=== PATIENT | female | born 1970 | race Caucasian/White ===

== ENCOUNTER 2019-02-10 20:05 | Emergency (ER) | payer BC, OTHER ==
[~2019-02-10] VITALS: Ht 162.6 cm; Wt 90.7 kg
[2019-02-10] MEDS ORDERED: ONDANSETRON 4 MG/2 ML (SDV) Z0FRAN ONE (20:14)
--- NOTE | 2019-02-10 20:14 | ED Abdominal Pain ---
General Chief Complaint: Abdominal/GI Problems Stated Complaint: ABD PAIN; POSSIBLE DEHYDRATION Source of Information: Patient, EMS, RN Notes Reviewed Exam Limitations: No Limitations History of Present Illness Date Seen by Provider: Feb 10, 2019 Time Seen by Provider: 20:12 Initial Comments Patient brought to the Ed c/ c/o ANDRADE and N/V since earlier this afternoon. No known fever. ANDRADE is frontal. Has had Sinus headaches and Migraines in the past. Rating her ANDRADE an 8-9/10. No heat exposure. Concerned could be dehydrated from her vomiting. Timing/Duration: 4-6 Hours Severity/Quality: Severe (ANDRADE; 8-9/10) Activities at Onset: Rest Modifying Factors: Worsens With Vomiting Associated Symptoms: Denies Symptoms (x/ as noted. ), Headache (frontal), Nausea/Vomiting Allergies and Home Medications Allergies Coded Allergies: No Known Drug Allergies (Unverified , 02/10/19) Patient Home Medication List Home Medication List Reviewed: Yes Review of Systems Review of Systems Constitutional: see HPI Gastrointestinal: See HPI, Nausea, Vomiting Psychiatric/Neurological: See HPI, Headache All Other Systems Reviewed Negative Unless Noted: Yes (Negative excepted noted.) Past Wfewhrs-Abuxcy-Csqocv Hx Patient Social History Recent Foreign Travel: No Contact w/Someone Who Travel: No Physical Exam Vital Signs Vital Signs - First Documented 02/10/19 20:25 Temp 97.4 Pulse 70 Resp 18 B/P (MAP) 142/73 (96) Pulse Ox 98 O2 Delivery Room Air Capillary Refill : Height/Weight/BMI Height: '" Weight: lbs. oz. kg; BMI Method: General Appearance: WD/WN, moderate distress, obese HEENT: PERRL/EOMI, normal ENT inspection Neck: supple, normal inspection Respiratory: no respiratory distress Cardiovascular: regular rate, rhythm Gastrointestinal: soft; No guarding, No rebound; tenderness (mild; diffuse) Rectal: deferred Neurologic/Psychiatric: no motor/sensory deficits, alert, oriented x 3, other (appears uncomfortable) Skin: warm/dry; No rash Progress/Results/Core Measures Results/Orders Lab Results Laboratory Tests Test 02/10/19 20:35 02/10/19 20:50 Range/Units Urine Color YELLOW Urine Clarity CLEAR Urine pH 6.5 5-9 Urine Specific [place] 1.015 L 1.016-1.022 Urine Protein NEGATIVE NEGATIVE Urine Glucose (UA) NEGATIVE NEGATIVE Urine Ketones TRACE H NEGATIVE Urine Nitrite NEGATIVE NEGATIVE Urine Bilirubin NEGATIVE NEGATIVE Urine Urobilinogen 0.2 NORMAL MG/DL Urine Leukocyte Esterase NEGATIVE NEGATIVE Urine RBC (Auto) NEGATIVE NEGATIVE Urine RBC RARE /HPF Urine WBC NONE /HPF Urine Squamous Epithelial Cells 0-2 /HPF Urine Crystals NONE /LPF Urine Bacteria NONE /HPF Urine Casts NONE /LPF Urine Mucus NEGATIVE /LPF Urine Culture Indicated NO White Blood Count 11.1 H 4.3-11.0 10^3/uL Red Blood Count 3.71 L 4.35-5.85 10^6/uL Hemoglobin 11.5 11.5-16.0 G/DL Hematocrit 35 35-52 % Mean Corpuscular Volume 94 80-99 FL Mean Corpuscular Hemoglobin 31 25-34 PG Mean Corpuscular Hemoglobin Concent 33 32-36 G/DL Red Cell Distribution Width 12.3 10.0-14.5 % Platelet Count 271 130-400 10^3/uL Mean Platelet Volume 10.7 H 7.4-10.4 FL Neutrophils (%) (Auto) 79 H 42-75 % Lymphocytes (%) (Auto) 16 12-44 % Monocytes (%) (Auto) 4 0-12 % Eosinophils (%) (Auto) 1 0-10 % Basophils (%) (Auto) 0 0-10 % Neutrophils # (Auto) 8.8 H 1.8-7.8 X 10^3 Lymphocytes # (Auto) 1.8 1.0-4.0 X 10^3 Monocytes # (Auto) 0.4 0.0-1.0 X 10^3 Eosinophils # (Auto) 0.1 0.0-0.3 10^3/uL Basophils # (Auto) 0.0 0.0-0.1 10^3/uL Sodium Level 139 135-145 MMOL/L Potassium Level 3.5 L 3.6-5.0 MMOL/L Chloride Level 102 98-107 MMOL/L Carbon Dioxide Level 17 L 21-32 MMOL/L Anion Gap 20 H 5-14 MMOL/L Blood Urea Nitrogen 10 7-18 MG/DL Creatinine 0.65 0.60-1.30 MG/DL Estimat Glomerular Filtration Rate > 60 BUN/Creatinine Ratio 15 Glucose Level 129 H 70-105 MG/DL Calcium Level 8.4 L 8.5-10.1 MG/DL Corrected Calcium 8.4 L 8.5-10.1 MG/DL Magnesium Level 1.7 L 1.8-2.4 MG/DL Total Bilirubin 0.3 0.1-1.0 MG/DL Aspartate Amino Transf (AST/SGOT) 15 5-34 U/L Alanine Aminotransferase (ALT/SGPT) 17 0-55 U/L Alkaline Phosphatase 62 40-136 U/L Total Protein 7.1 6.4-8.2 GM/DL Albumin 4.0 3.2-4.5 GM/DL Lipase 16 8-78 U/L Serum Test, Qualitative NEGATIVE NEGATIVE My Orders Orders - SAMIA WALLS DO Ondansetron Injection (Zofran Injectio (02/10/19 20:30) Ondansetron Injection (Zofran Injectio (02/10/19 20:14) Cbc With Automated Diff (02/10/19 20:18) Comprehensive Metabolic Panel (02/10/19 20:18) Hcg,Qualitative Serum (02/10/19 20:18) Lipase (02/10/19 20:18) Magnesium (02/10/19 20:18) Ua Culture If Indicated (02/10/19 20:18) Ketorolac Injection (Toradol Injection) (02/10/19 20:45) Promethazine Injection (Phenergan Injec (02/10/19 20:45) Ct Head Wo (02/10/19 20:41) Lactated Ringers (Lr 1000 Ml Iv Solution (02/10/19 21:30) Benztropine Injection (Cogentin Injectio (02/10/19 21:30) Dexamethasone Injection (Decadron Inject (02/10/19 21:30) Lorazepam Injection (Ativan Injection) (02/10/19 22:45) Medications Given in ED Current Medications Medications Dose Ordered Sig/David Route Start Time Stop Time Status Last Admin Dose Admin Benztropine Mesylate 2 mg ONCE ONCE IM 02/10/19 21:30 02/10/19 21:33 DC 02/10/19 21:48 2 MG Dexamethasone Sodium Phosphate 15 mg ONCE ONCE IV 02/10/19 21:30 02/10/19 21:33 DC 02/10/19 21:48 15 MG Ketorolac Tromethamine 15 mg ONCE ONCE IVP 02/10/19 20:45 02/10/19 21:22 DC 02/10/19 21:10 15 MG Lorazepam 0.5 mg ONCE ONCE IVP 02/10/19 22:45 02/10/19 22:46 DC 02/10/19 22:39 0.5 MG Ondansetron HCl 4 mg ONCE ONCE IVP 02/10/19 20:30 02/10/19 20:31 DC 02/10/19 20:22 4 MG Promethazine HCl 25 mg ONCE ONCE IVP 02/10/19 20:45 02/10/19 21:22 DC 02/10/19 21:10 25 MG Vital Signs/I&O 02/10/19 02/10/19 20:25 23:06 Temp 97.4 Pulse 70 68 Resp 18 16 B/P (MAP) 142/73 (96) 115/97 (103) Pulse Ox 98 98 O2 Delivery Room Air Room Air Progress Progress Note : Progress Note Symptoms much improved although she did develop some dystonic activity in her legs p/ the Phenergan. Dosed her c/ both Cogentin and Ativan that did help. Unfortunately, she lists Benadryl as an allergy. Diagnostic Imaging Diagonstic Imaging: CT Plain Films/CT/US/NM/MRI: head (nothing acute) Departure Impression Primary Impression: Head ache Additional Impressions: N&V (nausea and vomiting) Dehydration Dystonic drug reaction Disposition: 01 HOME, SELF-CARE Condition: Improved Departure-Patient Inst. Referrals: [facility] [place]ructions: Nausea and Vomiting, Adult, Migraine Headache (DC), Dehydration, Adult (DC) SAMIA WALLS DO Feb 10, 2019 20:14
[2019-02-10] MEDS ORDERED: ONDANSETRON 4 MG/2 ML (SDV) Z0FRAN IVP ONE (20:30)
[2019-02-10] MEDS ORDERED: PROMETHAZINE INJ 25 MG/ML (PHENERGAN) AMP IVP ONE (20:45)
[2019-02-10] MEDS ORDERED: KETOROLAC 30 MG/ML VIAL IVP ONE (20:45)
[2019-02-10 21:02] LABS: HEMATOCRIT 35 % (35-52); HEMOGLOBIN 11.5 G/DL (11.5-16.0); MEAN CORPUSCULAR HEMOGLOBIN 31 PG (25-34); WHITE BLOOD COUNT 11.1 10^3/uL (4.3-11.0)
[2019-02-10 21:03] LABS: BASOPHILS % (AUTO) 0 % (0-10); EOSINOPHILS # (AUTO) 0.1 10^3/uL (0.0-0.3); EOSINOPHILS % (AUTO) 1 % (0-10); LYMPHOCYTES # (AUTO) 1.8 X 10^3 (1.0-4.0); LYMPHOCYTES % (AUTO) 16 % (12-44); MEAN CORPUSCULAR HGB CONC 33 G/DL (32-36); MEAN CORPUSCULAR VOLUME 94 FL (80-99); MEAN PLATELET VOLUME 10.7 FL (7.4-10.4); MONOCYTES # (AUTO) 0.4 X 10^3 (0.0-1.0); MONOCYTES % (AUTO) 4 % (0-12); NEUTROPHILS # (AUTO) 8.8 X 10^3 (1.8-7.8); NEUTROPHILS % (AUTO) 79 % (42-75); PLATELET COUNT 271 10^3/uL (130-400); RED CELL DISTRIBUTION WIDTH 12.3 % (10.0-14.5)
--- NOTE | 2019-02-10 21:13 | Diagnostic Imaging Report ---
PROCEDURE: CT head without contrast. TECHNIQUE: Multiple contiguous axial images were obtained through the brain without the use of intravenous contrast. Auto Exposure Controls were utilized during the CT exam to meet ALARA standards for radiation dose reduction. INDICATION: Headache. FINDINGS: The ventricles and cortical gyral pattern are normal. There is no evidence of intracranial hemorrhage. No extra-axial fluid collection. Basal cisterns are clear. Pituitary is not enlarged. Orbital contents are symmetrical. Mastoid air cells and paranasal sinuses are clear where visualized. No evidence of calvarial fractures. IMPRESSION: Negative CT head without contrast. Dictated by: Dictated on workstation # [id number]
[2019-02-10 21:22] LABS: POTASSIUM 3.5 MMOL/L (3.6-5.0); SODIUM 139 MMOL/L (135-145)
[2019-02-10 21:22] LABS: BILIRUBIN,URINE NEGATIVE (NEGATIVE); CLARITY,URINE CLEAR; COLOR,URINE YELLOW; GLUCOSE, URINE (UA) NEGATIVE (NEGATIVE); KETONES,URINE TRACE (NEGATIVE); LEUKOCYTE ESTERASE ,URINE NEGATIVE (NEGATIVE); NITRITE,URINE NEGATIVE (NEGATIVE); PH,URINE 6.5 (5-9); PROTEIN,URINE NEGATIVE (NEGATIVE); RBC,URINE RARE /HPF; SQUAMOUS EPITHELIAL CELL,UR 0-2 /HPF; UROBILINOGEN,URINE 0.2 MG/DL (NORMAL)
[2019-02-10 21:23] LABS: ALANINE AMINOTRANSFERASE 17 U/L (0-55); ALKALINE PHOSPHATASE 62 U/L (40-136); BILIRUBIN,TOTAL 0.3 MG/DL (0.1-1.0); BUN/CREATININE RATIO 15; CALCIUM 8.4 MG/DL (8.5-10.1); CARBON DIOXIDE 17 MMOL/L (21-32); CHLORIDE 102 MMOL/L (98-107); CREATININE SERUM 0.65 MG/DL (0.60-1.30); GFR ESTIMATED > 60; GLUCOSE 129 MG/DL (70-105); LIPASE 16 U/L (8-78); MAGNESIUM 1.7 MG/DL (1.8-2.4); TOTAL PROTEIN 7.1 GM/DL (6.4-8.2)
[2019-02-10] MEDS ORDERED: BENZTROPINE 2 MG/2 ML INJ (COGENTIN) AMP IM ONE (21:30)
[2019-02-10] MEDS ORDERED: DEXAMETHASONE 4 MG/ML SDV (DECADRON) IV ONE (21:30)
[2019-02-10] MEDS ORDERED: LACTATED RINGERS 1,000 ML IV SCH (21:30)
[2019-02-10] MEDS ORDERED: LORazepam INJ 2 MG/ML (ATIVAN) VIAL IVP ONE (22:45)
[2019-02-10 23:06] VITALS: BP 115/97
== END 2019-02-10 23:00 | disposition home or self-care (01) ==
LOC: ER FS 20:07
DX: G24.9 Dystonia, unspecified (principal); T50.905A Adverse effect of unspecified drugs, medicaments and biological substances, initial encounter; R51 Headache; R11.2 Nausea with vomiting, unspecified; E86.0 Dehydration; Z86.69 Personal history of other diseases of the nervous system and sense organs
CPT/HCPCS: 36415; 70450; 80053; 81000; 83690; 83735; 84703; 85025; 96361; 96372; 96374; 96375

== ENCOUNTER 2019-05-16 11:42 | Emergency (ER) | payer BC ==
[~2019-05-16] VITALS: Ht 162.6 cm; Wt 97.5 kg
[2019-05-16] MEDS ORDERED: NS IV 500 ML 500 ML IV ONE (11:52)
[2019-05-16] MEDS ORDERED: NS IV 1000 ML 1,000 ML IV SCH (11:52)
[2019-05-16] MEDS ORDERED: ESTR2TAB (11:59)
[2019-05-16] MEDS ORDERED: FLUO40CA (11:59)
[2019-05-16] MEDS ORDERED: ONDANSETRON 4 MG/2 ML (SDV) Z0FRAN IVP ONE (12:00)
[2019-05-16] MEDS ORDERED: RT-ALBUTEROL/IPRATROPIUM 3 ML (DUONEB) VIAL INH ONE (12:00)
--- NOTE | 2019-05-16 12:02 | ED GI ---
General Chief Complaint: Abdominal/GI Problems Stated Complaint: VOMITING Source of Information: Patient, Family Exam Limitations: No Limitations History of Present Illness Date Seen by Provider: May 16, 2019 Time Seen by Provider: 11:45 Initial Comments Patient presents to ER by private conveyance with family and chief complaint of nausea vomiting for the past 2 days that has been intractable. She's not been able to tolerate her breathing treatments for her asthma. She says it started with a cold occasional cough runny nose about 4 days ago. She's had subjective fever and chills. No abdominal pain, dysuria or diarrhea. Allergies and Home Medications Allergies Coded Allergies: Penicillins (Verified Allergy, Unknown, hives, 05/16/19) Sulfa (Sulfonamide Antibiotics) (Verified Allergy, Unknown, hives, 05/16/19) cephalexin (Verified Allergy, Unknown, hives, 05/16/19) clindamycin (Verified Allergy, Unknown, hives, 05/16/19) codeine (Verified Allergy, Unknown, jittery, shaking, 05/16/19) diphenhydramine (Verified Allergy, Unknown, shaking, 05/16/19) levofloxacin (Verified Allergy, Unknown, hives, 05/16/19) minocycline (Verified Allergy, Unknown, hives, 05/16/19) montelukast (Verified Allergy, Unknown, hives, 05/16/19) tramadol (Verified Allergy, Unknown, hives, 05/16/19) yellow dye (Verified Allergy, Unknown, itching, 05/16/19) Home Medications Benzonatate 100 Mg Capsule, 100 MG PO Q6H PRN for COUGH Prescribed by: BILL LINN on 05/16/19 1243 Ondansetron 4 Mg Tab.rapdis, 4 MG PO Q6H PRN for NAUSEA/VOMITING Prescribed by: BILL LINN on 05/16/19 1243 Prednisone 20 Mg Tab, 40 MG PO DAILY Prescribed by: BILL LINN on 05/16/19 1243 Patient Home Medication List Home Medication List Reviewed: Yes Review of Systems Review of Systems Constitutional: chills; No fever; malaise EENTM: No Blurred Vision, No Double Vision Respiratory: Cough; Denies Shortness of Air Cardiovascular: Denies Chest Pain, Denies Lightheadedness Gastrointestinal: Denies Constipated, Denies Diarrhea; Nausea, Poor Fluid Intake, Vomiting Genitourinary: Denies Burning, Denies Discharge Musculoskeletal: No back pain, No joint pain Past Uemjqkd-Luksrd-Tljoez Hx Patient Social History Alcohol Use: Denies Use Recreational Drug Use: No Smoking Status: Never a Smoker 2nd Hand Smoke Exposure: No Recent Hopitalizations: No Seasonal Allergies Seasonal Allergies: No Past Medical History Surgeries: No Respiratory: No Cardiac: No Neurological: No Genitourinary: No Gastrointestinal: No Musculoskeletal: No Endocrine: No HEENT: No Cancer: No Psychosocial: No Integumentary: No Blood Disorders: No Physical Exam Vital Signs Vital Signs - First Documented 05/16/19 11:48 Temp 97.6 Pulse 118 Resp 22 B/P (MAP) 158/67 (97) Pulse Ox 98 Capillary Refill : Height/Weight/BMI Height: 5'4.00" Weight: 200lbs. oz. 90.709250oc; BMI Method:Stated General Appearance: WD/WN, no apparent distress HEENT: PERRL/EOMI, TMs normal; No pharynx normal (oropharynx is dry mildly); other (clear rhinorrhea inflamed nasal mucosa) Neck: non-tender, full range of motion, supple, normal inspection Respiratory: no respiratory distress, no accessory muscle use, wheezing, expiration Cardiovascular: normal peripheral pulses, regular rate, rhythm, no edema Peripheral Pulses: 2+ Radial Pulses (R), 2+ Radial Pulses (L) Gastrointestinal: non tender, soft Neurologic/Psychiatric: alert, normal mood/affect, oriented x 3 Skin: normal color, warm/dry Focused Exam Lactate Level 05/16/19 12:00: Lactic Acid Level 1.47 Lactic Acid Level Laboratory Tests Test 05/16/19 12:00 Lactic Acid Level 1.47 MMOL/L (0.50-2.00) Progress/Results/Core Measures Results/Orders Lab Results Laboratory Tests Test 05/16/19 12:00 Range/Units White Blood Count 11.8 H 4.3-11.0 10^3/uL Red Blood Count 4.25 L 4.35-5.85 10^6/uL Hemoglobin 12.9 11.5-16.0 G/DL Hematocrit 38 35-52 % Mean Corpuscular Volume 90 80-99 FL Mean Corpuscular Hemoglobin 30 25-34 PG Mean Corpuscular Hemoglobin Concent 34 32-36 G/DL Red Cell Distribution Width 12.5 10.0-14.5 % Platelet Count 332 130-400 10^3/uL Mean Platelet Volume 10.6 H 7.4-10.4 FL Neutrophils (%) (Auto) 82 H 42-75 % Lymphocytes (%) (Auto) 13 12-44 % Monocytes (%) (Auto) 4 0-12 % Eosinophils (%) (Auto) 1 0-10 % Basophils (%) (Auto) 0 0-10 % Neutrophils # (Auto) 9.7 H 1.8-7.8 X 10^3 Lymphocytes # (Auto) 1.5 1.0-4.0 X 10^3 Monocytes # (Auto) 0.4 0.0-1.0 X 10^3 Eosinophils # (Auto) 0.1 0.0-0.3 10^3/uL Basophils # (Auto) 0.1 0.0-0.1 10^3/uL Sodium Level 136 135-145 MMOL/L Potassium Level 3.8 3.6-5.0 MMOL/L Chloride Level 97 L 98-107 MMOL/L Carbon Dioxide Level 22 21-32 MMOL/L Anion Gap 17 H 5-14 MMOL/L Blood Urea Nitrogen 12 7-18 MG/DL Creatinine 0.67 0.60-1.30 MG/DL Estimat Glomerular Filtration Rate > 60 BUN/Creatinine Ratio 18 Glucose Level 108 H 70-105 MG/DL Lactic Acid Level 1.47 0.50-2.00 MMOL/L Calcium Level 9.4 8.5-10.1 MG/DL Corrected Calcium 9.1 8.5-10.1 MG/DL Total Bilirubin 0.4 0.1-1.0 MG/DL Aspartate Amino Transf (AST/SGOT) 13 5-34 U/L Alanine Aminotransferase (ALT/SGPT) 12 0-55 U/L Alkaline Phosphatase 81 40-136 U/L Total Protein 7.8 6.4-8.2 GM/DL Albumin 4.4 3.2-4.5 GM/DL Group A Streptococcus Screen NEGATIVE NEGATIVE Micro Results Microbiology 05/16/19 Influenza Types A,B Antigen (TATI) - Final, Complete My Orders Orders - BILL LINN Ed Iv/Invasive Line Start (05/16/19 11:52) Ns Iv 500 Ml (Sodium Chloride 0.9%) (05/16/19 11:52) Ns Iv 1000 Ml (Sodium Chloride 0.9%) (05/16/19 11:52) Ondansetron Injection (Zofran Injectio (05/16/19 12:00) Cbc With Automated Diff (05/16/19 11:52) Comprehensive Metabolic Panel (05/16/19 11:52) Chest Pa/Lat (2 View) (05/16/19 11:52) Ua Culture If Indicated (05/16/19 11:52) Blood Culture (05/16/19 11:52) Lactic Acid Analyzer (05/16/19 11:52) Influenza A And B Antigens (05/16/19 11:52) Rapid Strep A Screen (05/16/19 11:52) Albuterol/Ipra Inhalation Soln (Duoneb I (05/16/19 12:00) Svn Small Volume Nebulizer (05/16/19 11:52) Medications Given in ED Current Medications Medications Dose Ordered Sig/David Route Start Time Stop Time Status Last Admin Dose Admin Albuterol/ Ipratropium 3 ml ONCE ONCE INH 05/16/19 12:00 05/16/19 12:01 DC 05/16/19 12:15 3 ML Ondansetron HCl 8 mg ONCE ONCE IVP 05/16/19 12:00 05/16/19 12:01 DC 05/16/19 12:17 8 MG Vital Signs/I&O 05/16/19 11:48 Temp 97.6 Pulse 118 Resp 22 B/P (MAP) 158/67 (97) Pulse Ox 98 Progress Progress Note : Time: 12:15 Progress Note Patient is tachycardic after having used albuterol which probably represents dehydration since she's had vomiting today and appears clinically mildly dry. Just the same we will collect blood cultures and lactate if she has significant elevated white count. We'll give her a DuoNeb and Zofran for her nausea. We've appropriate antibiotics if there is a source of bacterial infection or sepsis. Her symptoms started out as upper respiratory likely viral infection and have migrated down because of vomiting which is more consistent with viral illness. IV fluids 1500 mL which is 20 mL/kg based on an adjusted ideal body weight of 156 pounds. Diagnostic Imaging Diagonstic Imaging: Xray Plain Films/CT/US/NM/MRI: chest (2v) Comments NAME: JUMANA ESPINO [facility] REC#: [id number] PT STATUS: REG ER : 1970 PHYSICIAN: BILL LINN MD ADMIT DATE: 05/16/19/ER FS Signed Date of Exam:05/16/19 CHEST PA/LAT (2 VIEW) INDICATION: Cough COMPARISON: None. FINDINGS: Frontal and lateral views the chest demonstrate clear lungs bilaterally. The heart size is normal. There is no pneumothorax. Osseous structures are normal. IMPRESSION: No acute findings. Normal chest. Dictated by: Dictated on workstation # [id number] Dict: 05/16/191217 Trans: 05/16/191217 [facility] [id number] Interpreted by: ALEXANDRO GONZÁLES Electronically signed by: ALEXANDRO GONZÁLES 05/16/191217 Reviewed: Reviewed by Me Departure Impression Primary Impression: Viral gastroenteritis Additional Impression: Viral upper respiratory tract infection with cough Disposition: HOME, SELF-CARE Condition: Stable Departure-Patient Inst. Decision time for Depature: 12:39 Referrals: [facility] (PCP) Primary Care Physician MATILDE VALLEJO APRN (Family) Primary Care Physician Patient Instructions: Viral Gastroenteritis, Viral Upper Respiratory Infection, Adult (DC) Add. Discharge Instructions: You have a viral syndrome which needs to work its course. Typically will last 5- 7 days. If it's getting longer than that are approaching 10 days then you should follow up with your primary care doctor for reevaluation. It has caused your asthma to be mildly out of control and I suspect a short course of low-dose steroids will be help you control your breathing. Take 40 mg of prednisone daily for the next 5 days. Use your albuterol 4 times a day on schedule with breathing treatments in between as needed for wheezing coughing or shortness of breath. If you still have persistent cough despite albuterol you can also use the Tessalon Perles 1 capsule every 6 hours. Qifd-xae-qscuxzn cough and cold medicines, topical rubs such as Vicks and other herbal remedies such as hot tea with honey can be helpful for your symptoms. Zofran 1 tablet under the tongue every 6 hours as needed for nausea or vomiting. Return to the ER if you have difficulty breathing or using your albuterol fr equently without significant improvement. All discharge instructions reviewed with patient and/or family. Voiced understanding. Scripts Benzonatate (Tessalon Perle) 100 Mg Capsule 100 MG PO Q6H PRN for COUGH, #20 CAP 0 Refills Prov: BILL LINN 05/16/19 Ondansetron (Ondansetron Odt) 4 Mg Tab.rapdis 4 MG PO Q6H PRN for NAUSEA/VOMITING, #12 TAB 0 Refills Prov: BILL LINN 05/16/19 Prednisone (Prednisone) 20 Mg Tab 40 MG PO DAILY, #10 TAB 0 Refills Prov: BILL LINN 05/16/19 Work/School Note: Work Release Form Date Seen in the Emergency Department: May 16, 2019 Return to Work: May 18, 2019 Restrictions: No Restrictions BILL LINN May 16, 2019 12:02
--- NOTE | 2019-05-16 12:21 | Diagnostic Imaging Report ---
INDICATION: Cough COMPARISON: None. FINDINGS: Frontal and lateral views the chest demonstrate clear lungs bilaterally. The heart size is normal. There is no pneumothorax. Osseous structures are normal. IMPRESSION: No acute findings. Normal chest. Dictated by: Dictated on workstation # [id number]
[2019-05-16 12:22] LABS: HEMATOCRIT 38 % (35-52); HEMOGLOBIN 12.9 G/DL (11.5-16.0); MEAN CORPUSCULAR HEMOGLOBIN 30 PG (25-34); MEAN CORPUSCULAR HGB CONC 34 G/DL (32-36); MEAN CORPUSCULAR VOLUME 90 FL (80-99); MEAN PLATELET VOLUME 10.6 FL (7.4-10.4); NEUTROPHILS % (AUTO) 82 % (42-75); PLATELET COUNT 332 10^3/uL (130-400); RED CELL DISTRIBUTION WIDTH 12.5 % (10.0-14.5); WHITE BLOOD COUNT 11.8 10^3/uL (4.3-11.0)
[2019-05-16 12:23] LABS: BASOPHILS # (AUTO) 0.1 10^3/uL (0.0-0.1); BASOPHILS % (AUTO) 0 % (0-10); EOSINOPHILS # (AUTO) 0.1 10^3/uL (0.0-0.3); EOSINOPHILS % (AUTO) 1 % (0-10); LYMPHOCYTES # (AUTO) 1.5 X 10^3 (1.0-4.0); LYMPHOCYTES % (AUTO) 13 % (12-44); MONOCYTES # (AUTO) 0.4 X 10^3 (0.0-1.0); MONOCYTES % (AUTO) 4 % (0-12); NEUTROPHILS # (AUTO) 9.7 X 10^3 (1.8-7.8)
[2019-05-16 12:32] LABS: BILIRUBIN,TOTAL 0.4 MG/DL (0.1-1.0); BUN/CREATININE RATIO 18; CALCIUM 9.4 MG/DL (8.5-10.1); CARBON DIOXIDE 22 MMOL/L (21-32); CHLORIDE 97 MMOL/L (98-107); CREATININE SERUM 0.67 MG/DL (0.60-1.30); GFR ESTIMATED > 60; GLUCOSE 108 MG/DL (70-105); POTASSIUM 3.8 MMOL/L (3.6-5.0); SODIUM 136 MMOL/L (135-145)
[2019-05-16 12:33] LABS: ALANINE AMINOTRANSFERASE 12 U/L (0-55); ALBUMIN 4.4 GM/DL (3.2-4.5); ALKALINE PHOSPHATASE 81 U/L (40-136); TOTAL PROTEIN 7.8 GM/DL (6.4-8.2)
[2019-05-16] MEDS ORDERED: ONDA4TAB11 PO (12:43)
[2019-05-16] MEDS ORDERED: BENZ-13 PO (12:43)
[2019-05-16] MEDS ORDERED: PRD20T PO (12:43)
[2019-05-16 13:46] VITALS: BP 136/65
== END 2019-05-16 14:06 | disposition home or self-care (01) ==
LOC: EDUNIT# 11:42 → ER FS 11:43
DX: A08.4 Viral intestinal infection, unspecified (principal); J06.9 Acute upper respiratory infection, unspecified; Z88.0 Allergy status to penicillin; Z88.2 Allergy status to sulfonamides; Z88.1 Allergy status to other antibiotic agents; Z88.5 Allergy status to narcotic agent; Z88.8 Allergy status to other drugs, medicaments and biological substances
CPT/HCPCS: 36415; 71046; 80053; 83605; 85025; 87040; 87430; 87804; 96361; 96374

== ENCOUNTER 2021-03-05 05:36 | Outpatient (CLI) | payer BC ==
[~2021-03-05] VITALS: Ht 162.6 cm; Wt 98.2 kg
[~2021-03-05 05:36] MED LIST: BENZ-13 PO; ESTR2TAB PO; FLUO40CA PO; ONDA4TAB11 PO; PRD20T PO
[2021-03-05] MEDS ORDERED: EPIN0.3P18 IJ (12:23)
[2021-03-05] MEDS ORDERED: RT-ALBUINH IH (12:23)
[2021-03-05] MEDS ORDERED: FLUT16SP22 NS (12:23)
[2021-03-05] MEDS ORDERED: LEVO5TAB12 PO (12:23)
[2021-03-05] MEDS ORDERED: ALPR0.25 PO (12:24)
[2021-03-09] MEDS ORDERED: DCS100C PO (08:06)
[2021-03-09] MEDS ORDERED: OXYC1TAB87 PO (08:06)
[2021-03-09] MEDS ORDERED: IBUP-1780 PO (08:06)
== END 2021-03-05 12:38 | disposition home or self-care (01) ==
LOC: PREOP 05:36
PROVIDERS: ATTEND Obstetrics & Gynecology
DX: Z01.818 Encounter for other preprocedural examination (principal)

== ENCOUNTER 2021-03-09 10:57 | Day surgery (SDC) | payer BC ==
[2021-03-09] VITALS (9 sets, daily range): BP systolic 86–149; BP diastolic 62–82
[~2021-03-09] VITALS: Ht 162.6 cm; Wt 98.2 kg
--- NOTE | 2021-03-09 07:46 | Progress Note-Pre Operative ---
Pre-Operative Progress Note H&P Reviewed The H&P was reviewed, patient examined and no changes noted. Date Seen by Provider: Mar 09, 2021 Time Seen by Provider: 12:15 Date H&P Reviewed: Mar 09, 2021 Time H&P Reviewed: 12:15 Pre-Operative Diagnosis: Vaginal prolapse and stress urinary incontinence ISAAK LANDIS MD Mar 09, 2021 07:46
--- NOTE | 2021-03-09 07:47 | Progress Note-Post Operative ---
Post-Operative Progess Note Surgeon (s)/Traffic And Transport Planner (s) Surgeon ISAAK LANDIS MD Traffic And Transport Planner: Jacquelin Pre-Operative Diagnosis Vaginal prolapse and stress urinary incontinence Post-Operative Diagnosis Same Procedure & Operative Findings Date of Procedure 03/09/21 Procedure Performed/Findings Anterior and posterior vaginal repairs with enterocele repair And sacrospinous ligament suspension and with Dr. Núñez performing pubovaginal sling and cystoscopy Anesthesia Type GETA Estimated Blood Loss Estimated blood loss (mL): 200 cc Specimens/Packing Specimens Removed Nothing Packing: Kerlix gauze in the vagina ISAAK LANDIS MD Mar 09, 2021 07:47
--- NOTE | 2021-03-09 08:11 | Discharge Inst-Surgical ---
Discharge Inst-Surgical Depart Medication/Instructions New, Converted or Re-Newed RX: Other Consults/Follow Up Patient Instructions: As directed Orders & Referrals Follow Up Appt: Call to make follow up appt. for patient in 4 weeks. Activity: Rest for 24 hours, than as tolerated. Wound Care: May remove Band-Aid tomorrow. Replace as desired. Keep incisions clean and dry. Wash daily with soap and water. Please call in RX to patient pharmacy. Diet: As tolerated-Clear Liquids only if nauseated. Tomorrow, may shower or tub bathe as desired. No driving for 24 hours, no alcoholic beverages for 24 hours, and nothing per vagina (no tampons, douching, or intercourse) for 4 weeks. Patient to return to the clinic as soon as possible for: Temperature greater than 101F, Severe Pain, Foul discharge from incision or vagina, Excessive Bleeding (more than a period). Activity Activity as Tolerated: No Diet Discharge Diet: No Restrictions ISAAK LANDIS MD Mar 09, 2021 08:11
[~2021-03-09 10:57] MED LIST changes: +ALPR0.25 PO; +BENZOCAINE/MENTHOL (DERMOPLAST) 56 ML CAN TP PRN; +DCS100C PO; +DOCUSATE SODIUM 100 MG (COLACE) CAP PO SCH; +EPIN0.3P18 IJ; +ESTROGENS CONJ INJECTION 25 MG in WATER (STERILE) FOR INJECTION 5 ML IV ONE; +FLUT16SP22 NS; +IBUP-1780 PO; +KETOROLAC 30 MG/ML VIAL IVP SCH; +LACTATED RINGERS 1,000 ML IV PRN; +LEVO5TAB12 PO; +ONDANSETRON 4 MG/2 ML (SDV) Z0FRAN IVP PRN; +OXYC1TAB87 PO; +RT-ALBUINH IH; +fentaNYL INJ 100 MCG/2 ML AMP IVP PRN
--- NOTE | 2021-03-09 10:59 | Progress Note-Pre Operative ---
Pre-Operative Progress Note H&P Reviewed The H&P was reviewed, patient examined and no changes noted. Date Seen by Provider: Mar 09, 2021 Time Seen by Provider: 11:59 Date H&P Reviewed: Mar 09, 2021 Time H&P Reviewed: 11:59 Pre-Operative Diagnosis: MARLY GARZA MD Mar 09, 2021 10:59
[2021-03-09] MEDS ORDERED: GENTAMICIN IV NR (11:00)
[2021-03-09] MEDS ORDERED: D5W IV NR (11:00)
[2021-03-09] MEDS ORDERED: ESTRADIOL VAGINAL CREAM 42.5 GM (ESTRACE) VG ONE (11:50)
[2021-03-09] MEDS ORDERED: LIDOCAINE PF 2% 5 ML (XYLOCAINE) VIAL ONE (12:14)
[2021-03-09] MEDS ORDERED: proPOfol 200 MG/20 ML (DIPRIVAN) VIAL IV ONE ×2 (12:14→12:50)
[2021-03-09] MEDS ORDERED: ONDANSETRON 4 MG/2 ML (SDV) Z0FRAN ONE (12:14)
[2021-03-09] MEDS ORDERED: MIDAZOLAM 2 MG/2 ML (VERSED) VIAL ONE (12:14)
[2021-03-09] MEDS ORDERED: fentaNYL INJ 100 MCG/2 ML AMP ONE (12:14)
[2021-03-09] MEDS ORDERED: HYDROmorphone 2 MG/ML VIAL (DILAUDID) IV ONE (12:15)
[2021-03-09] MEDS ORDERED: morphine INJ 10 MG/ML 1ML (SYR OR VIAL) IVP ONE (12:15)
[2021-03-09] MEDS ORDERED: ONDANSETRON 4 MG/2 ML (SDV) Z0FRAN IVP PRN (12:15)
[2021-03-09] MEDS ORDERED: ROCURONIUM 10 MG/ML 5 ML SYRINGE IV ONE (12:50)
[2021-03-09] MEDS ORDERED: NEOSTIGMINE 3 MG/3 ML VIAL ONE (13:26)
[2021-03-09] MEDS ORDERED: GLYCOPYRROLATE 0.2 MG/ML (ROBINUL) 2 ML VIAL ONE (13:26)
--- NOTE | 2021-03-09 13:27 | Progress Note-Post Operative ---
Post-Operative Progess Note Surgeon (s)/Manager Clinical Research (s) Surgeon MARLY GALLO MD Manager Clinical Research: ISAAK LANDIS MD Pre-Operative Diagnosis DEZ Post-Operative Diagnosis SAME Procedure & Operative Findings Date of Procedure 03/09/21 Procedure Performed/Findings PVS AND CYSTO Anesthesia Type GENERAL Estimated Blood Loss Estimated blood loss (mL): NONE Specimens/Packing Specimens Removed NONE Packin GM Estrace Kerlix gauze in the vagina MARLY GALLO MD Mar 09, 2021 13:27
[2021-03-09] MEDS ORDERED: HYDROmorphone 2 MG/ML VIAL (DILAUDID) ONE (13:47)
[2021-03-09] MEDS ORDERED: SEVOFLURANE (ULTANE) 15 ML INHAL SOLN ONE (13:50)
[2021-03-09] MEDS ORDERED: KETOROLAC 30 MG/ML VIAL ONE (14:18)
[2021-03-09] MEDS ORDERED: ESTROGENS CONJ IV 25 MG/5 ML (PREMARIN) VIAL ONE (14:19)
[2021-03-09] MEDS ORDERED: WATER (STERILE) FOR INJECTION 10 ML ONE (14:23)
[2021-03-09] MEDS ORDERED: morphine INJ 10 MG/ML 1ML (SYR OR VIAL) ONE (14:34)
--- NOTE | 2021-03-09 14:47 | Anesthesia-General Post-Op ---
General Patient Condition Mental Status/LOC: Same as Preop Cardiovascular: Satisfactory Nausea/Vomiting: Absent Respiratory: Satisfactory Pain: Controlled Complications: Absent Post Op Complications Complications None Follow Up Care/Instructions Patient Instructions None needed. Anesthesia/Patient Condition Patient Condition Patient is doing well, C/O some pain which is to be expected, stable vital signs, no apparent adverse anesthesia problems. MARGOTH GALLEGOS DO Mar 09, 2021 14:47
[2021-03-09] MEDS: D5 LR IV SOLUTION 1,000 ML IV SCH ×2 (15:45→16:03)
--- NOTE | 2021-03-09 16:35 | OPERATIVE REPORT ---
DATE OF SERVICE: 03/09/2021 PREOPERATIVE DIAGNOSIS: On my part, stress urinary incontinence. POSTOPERATIVE DIAGNOSIS: On my part, stress urinary incontinence. OPERATION PERFORMED: Pubovaginal sling and cystoscopy. SURGEON: Marly Gallo MD. NET DEVELOPMENT MANAGER: Kaiser Deutsch MD ANESTHESIA: General. COMPLICATIONS: None. DESCRIPTION OF PROCEDURE: After Dr. Deutsch performed the first part of his surgery that he will dictate, I inserted a Ovalle catheter draining clear urine. I passed the Desara sling on both sides using the described technique. The sling was sitting nicely under the mid urethra with no twist, no tension and passage of a curved hemostat easily between it and the underlying tissue. I removed the Ovalle catheter to perform cystoscopy to confirm the integrity of the bladder, ureteral orifices and urethra with no foreign body and presence of the sling under the mid urethra. I left the bladder half full, removed the cystoscope, performed a manual Valsalva maneuver that was negative. Reinserted the Ovalle catheter draining clear fluid. Estimated blood loss for my part, none and Dr. Deutsch procedure was the rest of his surgery that he will dictate. Job ID: [id number] DocumentID: [id number] Dictated Date: 03/09/2021 13:29:07 Crossing Supervisor Date: 03/09/2021 16:34:35 Dictated By: MARLY GALLO MD
--- NOTE | 2021-03-09 17:00 | OPERATIVE REPORT ---
DATE OF SERVICE: 03/09/2021 PREOPERATIVE DIAGNOSES: Vaginal prolapse and stress urinary incontinence. POSTOPERATIVE DIAGNOSES: Vaginal prolapse and stress urinary incontinence. OPERATIVE PROCEDURE: Anterior and posterior vaginal repairs with enterocele repair as well as sacrospinous ligament suspension with Dr. Sheets performing a pubovaginal sling and cystoscopy. OPERATIVE DESCRIPTION: With the patient in supine position under satisfactory general anesthesia, she was repositioned in dorsal lithotomy position in the Abraham stirrups and prepped and draped in the usual fashion for vaginal surgery. Weighted speculum placed in posterior fornix of vagina. The anterior vaginal wall was grasped with two Andria clamps. Incision was made in the anterior vaginal wall with Metzenbaum scissors to extend approximately 1.5 cm from the urethral meatus to the apex of the vagina. The vaginal wall was carefully dissected off the muscularis of the vagina back to the pubic rami bilaterally. Endopelvic fascia and bladder wall were plicated with 2-0 Vicryl sutures, elevating the bladder and lengthening the urethra. At this point, Dr. Sheets assumed care of the patient for a pubovaginal sling and cystoscopy. I remained to assist. Upon completion of Dr. Sheets's portion of procedure, he did leave the Ovalle catheter to dependent drainage and was draining clear yellow urine. I resumed care of the patient, resected redundant anterior vaginal wall muscularis mucosa and then closed the vaginal wall with a running locked suture of 2-0 Vicryl Rapide. Hemostasis was complete. Good support was evident. Posterior repair was now affected by placing Andria clamps on the perineum and hymenal ring at 5 and 7 o'clock position, an inverted triangle of skin was removed from the perineal body and upright triangle was removed from the posterior vaginal floor. The rectovaginal space was entered sharply and dissected bluntly to the apex of the vagina where it was explored. There was a small enterocele. The patient needed a sacrospinous ligament suspension as the vaginal apex still prolapsed over alf down the vaginal wall. Dissection was carried over to the right rectal pillar to the right sacrospinous ligament. The Pockethernet device was used to place a 2-0 Ethibond suture 1.5 cm from the ischial spine into the sacrospinous ligament. Two sutures were placed, both were double armed. Both were brought out through the apex of the vagina tagged and held long for tying later. The rectovaginal space was now obliterated with 2-0 Vicryl sutures after first obliterating the enterocele with a 2-0 Vicryl pursestring suture in the usual manner. The perineal body was restored with additional sutures of 2-0 Vicryl. Redundant posterior vaginal muscularis mucosa was removed sharply. Vaginal wall was closed with running locked suture of 3-0 Vicryl Rapide, that closure was continued past the hymenal ring down on the perineal body then back up subcutaneous to the hymenal ring where the suture was tied. At this point, the sacrospinous ligament suspension sutures were tied. One of them was found to have been severed, it was removed. The remaining suture, which was adequate for the repair was tied supporting the top of the apex of the vagina well up into the pelvis. That suture was cut short. The vagina was examined for hemostasis that being complete, the vagina was filled with Estrace vaginal cream and a pack of Kerlix gauze was placed. Ovalle catheter was left to dependent drainage. Sponge and needle counts were correct on completion of procedure. Blood loss was around 200 mL. The patient tolerated the procedure well and was uneventfully awakened from her general anesthesia and transferred to recovery room in stable condition. Job ID: [id number] DocumentID: [id number] Dictated Date: 03/09/2021 13:54:12 Paramedical Aide Date: 03/09/2021 16:58:50 Dictated By: ISAAK LANDIS MD
[2021-03-09] MEDS: KETOROLAC 30 MG/ML VIAL IVP SCH (19:59)
[2021-03-09] MEDS: oxyCODONE/APAP 5/325MG (PERCOCET 5) TABLET PO PRN (22:02)
[2021-03-10 00:10] VITALS: BP 101/54
[2021-03-10] MEDS: D5 LR IV SOLUTION 1,000 ML IV SCH (00:12)
[2021-03-10] MEDS: KETOROLAC 30 MG/ML VIAL IVP SCH (01:59)
[2021-03-10 04:00] VITALS: BP 104/55
[2021-03-10] MEDS ORDERED: IBUPROFEN 800 MG (MOTRIN) TAB PO ONE (08:20)
[2021-03-10] MEDS: IBUPROFEN 800 MG (MOTRIN) TAB PO SCH ×2 (08:26→13:54)
[2021-03-10] MEDS: oxyCODONE/APAP 5/325MG (PERCOCET 5) TABLET PO PRN (08:27)
[2021-03-10 08:29] VITALS: BP 125/57
[2021-03-10] MEDS ORDERED: DOCUSATE SODIUM 100 MG (COLACE) CAP PO SCH (09:00)
--- NOTE | 2021-03-10 10:01 | Progress Note ---
Standard Progress Note Progress Notes/Assess & Plan Date Seen by a Provider: Mar 10, 2021 Time Seen by a Provider: 09:58 Progress/Assessment & Plan This patient is without complaint except that her pain medication is not taking care of her pain however she would like. We will change her main pain medication. Patient is voiding tolerating oral intake well and ambulating Vital Signs 03/09/21 03/10/21 14:40 04:00 Temp 36.9 Pulse 71 Resp 18 B/P (MAP) 104/55 (71) Pulse Ox 96 O2 Delivery Room Air O2 Flow Rate 2 Vital signs are stable. Patient is afebrile. The abdomen is benign. Extremities show no clubbing or cyanosis. There is no Homans' sign. Assessment and plan Postoperative day #1 doing well. We will change pain medication providing patient has good pain control is ambulating voiding tolerating oral intake we will allow discharge home with follow-up in clinic Final Diagnosis Uterovaginal prolapse and stress urinary incontinence ISAAK LANDIS MD Mar 10, 2021 10:01
[2021-03-10] MEDS ORDERED: OXYC-556 PO ×2 (10:04)
[2021-03-10] MEDS ORDERED: oxyCODONE/APAP 10/325MG (PERCOCET 10) TABLET PO ONE (10:08)
[2021-03-10] MEDS ORDERED: oxyCODONE/APAP 10/325MG (PERCOCET 10) TABLET PO PRN (10:15)
[2021-03-10] MEDS ORDERED: IBUPROFEN 800 MG (MOTRIN) TAB PO SCH (12:00)
[2021-03-10 13:55] VITALS: BP 122/60
== END 2021-03-10 15:30 | disposition home or self-care (01) ==
LOC: SDC 10:57 → WS 15:12 → SDC 03-10 15:30
PROVIDERS: ATTEND Obstetrics & Gynecology
DX: N99.3 Prolapse of vaginal vault after hysterectomy (principal); N95.2 Postmenopausal atrophic vaginitis; N95.9 Unspecified menopausal and perimenopausal disorder; N39.46 Mixed incontinence; K21.9 Gastro-esophageal reflux disease without esophagitis; M79.7 Fibromyalgia; F41.9 Anxiety disorder, unspecified; Z88.0 Allergy status to penicillin; Z88.2 Allergy status to sulfonamides; Z88.1 Allergy status to other antibiotic agents; Z91.011 Allergy to milk products; Z79.899 Other long term (current) drug therapy; Z88.5 Allergy status to narcotic agent; Z79.2 Long term (current) use of antibiotics; Z98.51 Tubal ligation status; Z90.710 Acquired absence of both cervix and uterus
CPT/HCPCS: 57265; 57282; 57288; 87081; C1771

== ENCOUNTER 2021-03-11 17:05 | Emergency (ER) | payer BC ==
[~2021-03-11] VITALS: Ht 162.5 cm; Wt 98.2 kg
[~2021-03-11 17:05] MED LIST changes: -BENZOCAINE/MENTHOL (DERMOPLAST) 56 ML CAN TP PRN; -DOCUSATE SODIUM 100 MG (COLACE) CAP PO SCH; -ESTROGENS CONJ INJECTION 25 MG in WATER (STERILE) FOR INJECTION 5 ML IV ONE; -KETOROLAC 30 MG/ML VIAL IVP SCH; -LACTATED RINGERS 1,000 ML IV PRN; -ONDANSETRON 4 MG/2 ML (SDV) Z0FRAN IVP PRN; +OXYC-556 PO; -fentaNYL INJ 100 MCG/2 ML AMP IVP PRN
--- NOTE | 2021-03-11 17:37 | ED GU-Female ---
General Chief Complaint: - Urinary Stated Complaint: UNABLE TO URINATE History of Present Illness Date Seen by Provider: Mar 11, 2021 Time Seen by Provider: 17:20 Initial Comments 51-year-old female presents with difficulty urinating. Patient reports that 2 days ago at [facility] she had bladder sling, rectocele Vagocele repair procedures. She reports that she is having difficulty urinating. She is able to urinate a little bit but is weak stream and she has quite a bit of discomfort. She denies any fevers or chills. She was told that if she has difficulty come to the ER for a straight catheter and do not allow a Ovalle catheter to be placed. Allergies and Home Medications Allergies Coded Allergies: Milk Containing Products (Verified Allergy, Unknown, 03/05/21) Penicillins (Verified Allergy, Unknown, hives, 05/16/19) Sulfa (Sulfonamide Antibiotics) (Verified Allergy, Unknown, hives, 05/16/19) cephalexin (Verified Allergy, Unknown, hives, 05/16/19) clindamycin (Verified Allergy, Unknown, hives, 05/16/19) codeine (Verified Allergy, Unknown, jittery, shaking, 05/16/19) diphenhydramine (Verified Allergy, Unknown, shaking, 05/16/19) levofloxacin (Verified Allergy, Unknown, hives, 05/16/19) minocycline (Verified Allergy, Unknown, hives, 05/16/19) montelukast (Verified Allergy, Unknown, hives, 05/16/19) tramadol (Verified Allergy, Unknown, hives, 05/16/19) yellow dye (Verified Allergy, Unknown, itching, 05/16/19) Home Medications Albuterol Sulfate 1 Puff Puff, 1 PUFF IH Q4H, (Reported) 1 PUFF = 90 MCG Alprazolam 0.25 Mg Tablet, 0.25 MG PO DAILY, (Reported) Docusate Sodium 100 Mg Capsule, 100 MG PO BID Prescribed by: ISAAK IBARRA on 03/09/21 0806 Epinephrine 0.3 Mg/0.3 Ml Auto.injct, 0.3 MG IJ UD, (Reported) Estradiol 2 Mg Tablet, 1 MG PO DAILY, (Reported) Fluoxetine HCl 40 Mg Capsule, 40 MG PO DAILY, (Reported) Ibuprofen 800 Mg Tablet, 800 MG PO Q6HR Prescribed by: ISAAK IBARRA on 03/09/21 0806 Levocetirizine Dihydrochloride 5 Mg Tablet, 5 MG PO DAILY PRN, (Reported) Ondansetron 4 Mg Tab.rapdis, 4 MG PO Q6H PRN for NAUSEA/VOMITING Prescribed by: BILL LINN on 05/16/19 1243 Oxycodone HCl/Acetaminophen 1 Each Tablet, 1 TAB PO Q4H PRN for PAIN-MODERATE Prescribed by: ISAAK IBARRA on 03/10/21 1006 Patient Home Medication List Home Medication List Reviewed: Yes Review of Systems Review of Systems Constitutional: No chills, No fever Respiratory: no symptoms reported Cardiovascular: no symptoms reported Gastrointestinal: see HPI Genitourinary: see HPI Musculoskeletal: no symptoms reported Skin: no symptoms reported Psychiatric/Neurological: No Symptoms Reported Past Wgcoxkm-Xlniqg-Nxxrio Hx Patient Social History Tobacco Use?: No Substance use?: No Alcohol Use?: No Pt feels they are or have been: No Seasonal Allergies Seasonal Allergies: Yes Past Medical History Surgeries: Yes (ex of bunion, colonoscopy, wisdom teeth) Hysterectomy, Tubal Ligation Respiratory: Yes Chronic Bronchitis Currently Using CPAP: No Currently Using BIPAP: No Cardiac: No 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 oz. 97.419937xx; 37.14 BMI Method:Stated General Appearance: no apparent distress Neck: supple Cardiovascular: normal peripheral pulses, regular rate, rhythm Respiratory: lungs clear, normal breath sounds Gastrointestinal: soft; No guarding, No rebound Extremities: normal range of motion Neurologic/Psychiatric: normal mood/affect, oriented x 3 Skin: normal color, warm/dry Progress/Results/Core Measures Suspected Sepsis SIRS Temperature: Pulse: Respiratory Rate: Blood Pressure / Mean: Results/Orders Lab Results Laboratory Tests Test 03/11/21 17:41 Range/Units Urine Color STRAW Urine Clarity CLEAR Urine pH 6.0 5-9 Urine Specific [place] <=1.005 1.016-1.022 Urine Protein NEGATIVE NEGATIVE Urine Glucose (UA) NEGATIVE NEGATIVE Urine Ketones NEGATIVE NEGATIVE Urine Nitrite NEGATIVE NEGATIVE Urine Bilirubin NEGATIVE NEGATIVE Urine Urobilinogen 0.2 < = 1.0 MG/DL Urine Leukocyte Esterase NEGATIVE NEGATIVE Urine RBC (Auto) TRACE-I NEGATIVE Urine RBC 0-2 /HPF Urine WBC NONE /HPF Urine Squamous Epithelial Cells 2-5 /HPF Urine Crystals NONE /LPF Urine Bacteria TRACE /HPF Urine Casts NONE /LPF Urine Mucus NEGATIVE /LPF Urine Culture Indicated NO My Orders Orders - SERAFIN PALOMO DO Ua Culture If Indicated (03/11/21 17:30) Bladder Scan-Straight Cath-Pos (03/11/21 17:30) Vital Signs/I&O 03/11/21 17:13 Temp 37.0 Pulse 80 Resp 16 B/P (MAP) 155/79 (104) Pulse Ox 98 O2 Delivery Room Air Capillary Refill : Progress Note : Progress Note Straight cath produced 450 mL of urine. Patient had significant relief. UA does not show any signs of infection. She will be discharged home she should follow-up with her surgeons on Friday since they will not be open tomorrow. Patient stable upon discharge. She should return to the ER as needed Departure Impression Primary Impression: Postprocedural urinary retention Disposition: 01 HOME, SELF-CARE Condition: Stable Departure-Patient Inst. Referrals: MATILDE VALLEJO APRN (PCP) Primary Care Physician [facility] (Family) Primary Care Physician Patient Instructions: Urinary Retention (DC) Add. Discharge Instructions: Return to the ER as needed Follow your postoperative procedural instructions from your surgeons All discharge instructions reviewed with patient and/or family. Voiced understanding. SERAFIN PALOMO DO Mar 11, 2021 17:37
[2021-03-11 17:45] LABS: COLOR,URINE STRAW
[2021-03-11 17:48] LABS: CLARITY,URINE CLEAR; GLUCOSE, URINE (UA) NEGATIVE (NEGATIVE); PROTEIN,URINE NEGATIVE (NEGATIVE)
[2021-03-11 17:49] LABS: BACTERIA,URINE TRACE /HPF; BILIRUBIN,URINE NEGATIVE (NEGATIVE); KETONES,URINE NEGATIVE (NEGATIVE); LEUKOCYTE ESTERASE ,URINE NEGATIVE (NEGATIVE); NITRITE,URINE NEGATIVE (NEGATIVE); RBC,URINE 0-2 /HPF
[2021-03-11 18:25] VITALS: BP 155/79
== END 2021-03-11 18:21 | disposition home or self-care (01) ==
LOC: EDUNIT# 17:05 → ER FS 17:07
DX: N99.89 Other postprocedural complications and disorders of genitourinary system (principal); F41.9 Anxiety disorder, unspecified; F32.9 Major depressive disorder, single episode, unspecified; Z79.899 Other long term (current) drug therapy
CPT/HCPCS: 51701; 81000

== ENCOUNTER 2021-03-12 09:01 | Emergency (ER) | payer BC ==
[~2021-03-12] VITALS: Ht 162 cm; Wt 97.0 kg
--- NOTE | 2021-03-12 09:29 | ED General ---
General Chief Complaint: - Urinary Stated Complaint: BOWEL CONSTIPATION; NOT URINATING Nursing Triage Note: PT IS UNABLE TO URINATE AFTERR HAVING A CYSTOCELE. RECTOCELE, BLADDER SLING, AND A SSLS. PT WAS IN THE ER LAST PM FOR A STRAIGHT CATH. Source of Information: Patient History of Present Illness Date Seen by Provider: Mar 12, 2021 Time Seen by Provider: 09:06 Initial Comments 51-year-old female presenting with recurrent urinary retention. She had surgery on Friday with Dr. Deutsch and Dr. Sheets for a bladder sling and cystocele with rectocele repair. She had been doing well postoperatively and was voiding so she was discharged home. She was having a lot of pain and was increased to Percocet 10/325 mg for her pain when discharged. She denies any fever or chills. She feels like she is having a lot of pressure in her rectum and has not been able to have a bowel movement. She is passing gas. She denies any nausea or vomiting. She has been taking a stool softener twice a day but has not been able to have a bowel movement. She did try a fleets suppository last night. This also did not help her abdomen. She has not taken anything else for her bowels. She had to come in yesterday for urinary retention and had a straight cath placed. The urine did not show signs of infection at that point. She returns today for the same symptoms. She denies fever, chills Timing/Duration: 1-2 Days Associated Systoms: No Chest Pain, No Cough, No Diaphoresis, No Fever/Chills, No Headaches; Malaise; No Nausea/Vomiting, No Seizure, No Shortness of Air, No Syncope, No Weakness Allergies and Home Medications Allergies Coded Allergies: Milk Containing Products (Verified Allergy, Unknown, 03/05/21) Penicillins (Verified Allergy, Unknown, hives, 05/16/19) Sulfa (Sulfonamide Antibiotics) (Verified Allergy, Unknown, hives, 05/16/19) cephalexin (Verified Allergy, Unknown, hives, 05/16/19) clindamycin (Verified Allergy, Unknown, hives, 05/16/19) codeine (Verified Allergy, Unknown, jittery, shaking, 05/16/19) diphenhydramine (Verified Allergy, Unknown, shaking, 05/16/19) levofloxacin (Verified Allergy, Unknown, hives, 05/16/19) minocycline (Verified Allergy, Unknown, hives, 05/16/19) montelukast (Verified Allergy, Unknown, hives, 05/16/19) tramadol (Verified Allergy, Unknown, hives, 05/16/19) yellow dye (Verified Allergy, Unknown, itching, 05/16/19) Home Medications Albuterol Sulfate 1 Puff Puff, 1 PUFF IH Q4H, (Reported) 1 PUFF = 90 MCG Alprazolam 0.25 Mg Tablet, 0.25 MG PO DAILY, (Reported) Docusate Sodium 100 Mg Capsule, 100 MG PO BID Prescribed by: ISAAK IBARRA on 03/09/21 0806 Epinephrine 0.3 Mg/0.3 Ml Auto.injct, 0.3 MG IJ UD, (Reported) Estradiol 2 Mg Tablet, 1 MG PO DAILY, (Reported) Fluoxetine HCl 40 Mg Capsule, 40 MG PO DAILY, (Reported) Ibuprofen 800 Mg Tablet, 800 MG PO Q6HR Prescribed by: ISAAK IBARRA on 03/09/21 0806 Levocetirizine Dihydrochloride 5 Mg Tablet, 5 MG PO DAILY PRN, (Reported) Ondansetron 4 Mg Tab.rapdis, 4 MG PO Q6H PRN for NAUSEA/VOMITING Prescribed by: BILL LINN on 05/16/19 1243 Oxycodone HCl/Acetaminophen 1 Each Tablet, 1 TAB PO Q4H PRN for PAIN-MODERATE Prescribed by: ISAAK IBARRA on 03/10/21 1006 Patient Home Medication List Home Medication List Reviewed: Yes Review of Systems Review of Systems Constitutional: No chills, No fever EENTM: no symptoms reported Respiratory: no symptoms reported Cardiovascular: no symptoms reported Gastrointestinal: see HPI Genitourinary: see HPI Musculoskeletal: no symptoms reported Skin: no symptoms reported Psychiatric/Neurological: Anxiety Past Mgsejas-Fkqiwm-Jamcdf Hx Patient Social History Tobacco Use?: No Substance use?: No Alcohol Use?: No Pt feels they are or have been: No Seasonal Allergies Seasonal Allergies: Yes Past Medical History Surgeries: Yes (ex of bunion, colonoscopy, wisdom teeth) Hysterectomy, Tubal Ligation Respiratory: Yes Chronic Bronchitis Currently Using CPAP: No Currently Using BIPAP: No Cardiac: No 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 oz. 97.331988tl; 36.00 BMI Method:Stated General Appearance: WD/WN, Anxious HEENT: Pharynx Normal Neck: Full Range of Motion, Non Tender, Supple Respiratory: Chest Non Tender, Lungs Clear, Normal Breath Sounds, No Accessory Muscle Use, No Respiratory Distress Cardiovascular: Regular Rate, Rhythm, Normal Peripheral Pulses Gastrointestinal: Normal Bowel Sounds, No Pulsatile Mass, Non Tender, Soft Extremity: Normal Capillary Refill, Normal Inspection, No Calf Tenderness, No Pedal Edema Neurologic/Psychiatric: Alert, Oriented x3, charge weigher II-XII Norm as Tested Skin: Warm/Dry Progress/Results/Core Measures Suspected Sepsis SIRS Temperature: Pulse: 83 Respiratory Rate: 18 Blood Pressure 128 /64 Mean: 85 Results/Orders Lab Results Laboratory Tests Test 03/12/21 09:34 Range/Units Urine Color YELLOW Urine Clarity SLIGHTLY CLOUDY Urine pH 6.0 5-9 Urine Specific [place] 1.020 1.016-1.022 Urine Protein NEGATIVE NEGATIVE Urine Glucose (UA) NEGATIVE NEGATIVE Urine Ketones NEGATIVE NEGATIVE Urine Nitrite POSITIVE H NEGATIVE Urine Bilirubin NEGATIVE NEGATIVE Urine Urobilinogen 0.2 < = 1.0 MG/DL Urine Leukocyte Esterase NEGATIVE NEGATIVE Urine RBC (Auto) TRACE H NEGATIVE Urine RBC 0-2 /HPF Urine WBC 0-2 /HPF Urine Squamous Epithelial Cells 5-10 /HPF Urine Crystals NONE /LPF Urine Bacteria LARGE H /HPF Urine Casts NONE /LPF Urine Mucus SMALL H /LPF Urine Culture Indicated YES My Orders Orders - KRUNAL MILLER MD Ovalle Cath (03/12/21 09:27) Ua Culture If Indicated (03/12/21 09:27) Abdomen (Kub) 1 View (03/12/21 09:36) Urine Culture (03/12/21 09:34) Vital Signs/I&O 03/12/21 03/12/21 09:05 10:36 Temp 36.3 36.3 Pulse 83 80 Resp 18 16 B/P (MAP) 128/64 (85) 118/78 Pulse Ox 99 99 O2 Delivery Room Air Room Air Capillary Refill : Less Than 3 Seconds Blood Pressure Mean: 85 Progress Note #1: Progress Note Ovalle catheter placed to drain bladder. New UA sent but UA from last night did not show infection. With her passing gas will check with Dr. Deutsch and Dr. Sheets about surgery. Progress Note #2: Progress Note UA shows Nitrites now. Abdomen Xray does not show obstructive pattern or fecal impaction. When discussed with pt she refused antibiotic due to concern for allergy but states she will take pills of Oil of Oregano instead to treat for infection. I encouraged her to push fluids and cranberry juice and the Urine catheter specimen will have culture performed on it in case it shows she needs antibiotic, we should know by time she sees Dr. Sheets on at 1 pm. d/w Dr. Deutsch and he recommends Miralax dose 1 per hour until she has a bowel movement D/w Dr. Sheets and he recommends leaving catheter in place for now and see him at 1 pm and he will remove catheter and ensure she can drain her bladder. Diagnostic Imaging Diagonstic Imaging: Xray Plain Films/CT/US/NM/MRI: abdomen Comments [facility], [place] NAME: JUMANA ESPINO [facility] REC#: [id number] PT STATUS: DEP ER : 1970 PHYSICIAN: KRUNAL MILLER MD ADMIT DATE: 03/12/21/ER FS Signed Date of Exam:03/12/21 ABDOMEN (KUB) 1 VIEW INDICATION: Constipation Abdominal film obtained at 10:03 a.m. There is prominent stool throughout the colon. There is no overt obstruction or ileus. There are no suspicious calcifications. IMPRESSION: Prominent stool throughout the colon compatible with history of constipation. No overt obstruction or ileus. Dictated by: Dictated on workstation # [id number] Dict: 03/12/21 1014 Trans: 03/12/21 1104 [facility] [id number] Interpreted by: CHRISTIANO SEGAL MD Electronically signed by: CHRISTIANO SEGAL MD 03/12/21 1104 Reviewed: Reviewed by Me Departure Impression Primary Impression: Postprocedural urinary retention Additional Impression: Constipation due to opioid therapy Disposition: HOME, SELF-CARE Condition: Stable Departure-Patient Inst. Decision time for Depature: 10:31 Referrals: MATILDE VALLEJO APRN (PCP) Primary Care Physician [facility] (Family) Primary Care Physician Patient Instructions: Constipation, Adult ED, How to Care for Your Ovalle Catheter Add. Discharge Instructions: Per Dr. Deutsch take a dose of Miralax every hour until you have a bowel movement. Then you could decrease that to once a day to keep your stools soft and regular while taking Oxycodone/Acetaminophen for pain. Mix 17 gram or 1 capful of Miralax in 8 ounces of water or juice and drink that eveyr hour until your start having bowel movements. Per Dr. Sheets, leave the catheter in place until you can see him on March 15 at 1 pm. If your urine culture shows you need an antibiotic as well then will work with Dr. Sheets and clinic to get you started on medicine when you see him . All discharge instructions reviewed with patient and/or family. Voiced understanding. KRUNAL MILLER MD Mar 12, 2021 09:29
[2021-03-12 09:37] LABS: CLARITY,URINE SLIGHTLY CLOUDY; COLOR,URINE YELLOW; GLUCOSE, URINE (UA) NEGATIVE (NEGATIVE); KETONES,URINE NEGATIVE (NEGATIVE); PROTEIN,URINE NEGATIVE (NEGATIVE)
[2021-03-12 09:38] LABS: BILIRUBIN,URINE NEGATIVE (NEGATIVE); LEUKOCYTE ESTERASE ,URINE NEGATIVE (NEGATIVE); NITRITE,URINE POSITIVE (NEGATIVE)
[2021-03-12 09:40] LABS: RBC,URINE 0-2 /HPF; WBC,URINE 0-2 /HPF
[2021-03-12 09:41] LABS: BACTERIA,URINE LARGE /HPF
[2021-03-12 10:36] VITALS: BP 118/78
--- NOTE | 2021-03-12 10:54 | Diagnostic Imaging Report ---
INDICATION: Constipation Abdominal film obtained at 10:03 a.m. There is prominent stool throughout the colon. There is no overt obstruction or ileus. There are no suspicious calcifications. IMPRESSION: Prominent stool throughout the colon compatible with history of constipation. No overt obstruction or ileus. Dictated by: Dictated on workstation # [id number]
== END 2021-03-12 10:37 | disposition home or self-care (01) ==
LOC: EDUNIT# 09:01 → ER FS 09:02
DX: N99.89 Other postprocedural complications and disorders of genitourinary system (principal); K59.03 Drug induced constipation; T40.2X5A Adverse effect of other opioids, initial encounter; F41.9 Anxiety disorder, unspecified; F32.9 Major depressive disorder, single episode, unspecified; Z79.899 Other long term (current) drug therapy; J42 Unspecified chronic bronchitis; G89.18 Other acute postprocedural pain; R10.2 Pelvic and perineal pain; G62.9 Polyneuropathy, unspecified; Z79.891 Long term (current) use of opiate analgesic; Z90.710 Acquired absence of both cervix and uterus; Z98.51 Tubal ligation status
CPT/HCPCS: 51702; 74018; 81000; 87077; 87088; 87186

== ENCOUNTER 2021-03-12 17:06 | Day surgery (SDC) | payer BC ==
[~2021-03-12] VITALS: Ht 162 cm; Wt 97.0 kg
--- NOTE | 2021-03-12 17:10 | ED GI ---
General Chief Complaint: Abdominal/GI Problems Stated Complaint: CONSTIPATION Source of Information: Patient, EMS, Old Records History of Present Illness Date Seen by Provider: Mar 12, 2021 Time Seen by Provider: 17:08 Initial Comments 51-year-old female presenting with complaints of rectal and vaginal pain. She has already had 1 prior ED visit to the emergency department because of pelvic pain and urinary retention. She is upset that she has not been able to have a bowel movement since surgery. She was advised earlier today when she was here to take MiraLAX every hour until she had a bowel movement. However she states after 3-4 doses she was straining and having so much pain that she had her mother tried giving her an enema. After that she had more pain and called EMS to bring her here to the emergency department. She has no active bleeding or tears visible on exam. She is very anxious and distraught on exam and obtaining history. She has had no vomiting. She still has the Ovalle catheter draining her bladder. Allergies and Home Medications Allergies Coded Allergies: Milk Containing Products (Verified Allergy, Unknown, 03/05/21) Penicillins (Verified Allergy, Unknown, hives, 05/16/19) Sulfa (Sulfonamide Antibiotics) (Verified Allergy, Unknown, hives, 05/16/19) cephalexin (Verified Allergy, Unknown, hives, 05/16/19) clindamycin (Verified Allergy, Unknown, hives, 05/16/19) codeine (Verified Allergy, Unknown, jittery, shaking, 05/16/19) diphenhydramine (Verified Allergy, Unknown, shaking, 05/16/19) levofloxacin (Verified Allergy, Unknown, hives, 05/16/19) minocycline (Verified Allergy, Unknown, hives, 05/16/19) montelukast (Verified Allergy, Unknown, hives, 05/16/19) tramadol (Verified Allergy, Unknown, hives, 05/16/19) yellow dye (Verified Allergy, Unknown, itching, 05/16/19) Home Medications Albuterol Sulfate 1 Puff Puff, 1 PUFF IH Q4H, (Reported) 1 PUFF = 90 MCG Alprazolam 0.25 Mg Tablet, 0.25 MG PO DAILY, (Reported) Docusate Sodium 100 Mg Capsule, 100 MG PO BID Prescribed by: ISAAK IBARRA on 03/09/21 0806 Epinephrine 0.3 Mg/0.3 Ml Auto.injct, 0.3 MG IJ UD, (Reported) Estradiol 2 Mg Tablet, 1 MG PO DAILY, (Reported) Fluoxetine HCl 40 Mg Capsule, 40 MG PO DAILY, (Reported) Ibuprofen 800 Mg Tablet, 800 MG PO Q6HR Prescribed by: ISAAK IBARRA on 03/09/21 0806 Levocetirizine Dihydrochloride 5 Mg Tablet, 5 MG PO DAILY PRN, (Reported) Ondansetron 4 Mg Tab.rapdis, 4 MG PO Q6H PRN for NAUSEA/VOMITING Prescribed by: BILL LINN on 05/16/19 1243 Oxycodone HCl/Acetaminophen 1 Each Tablet, 1 TAB PO Q4H PRN for PAIN-MODERATE Prescribed by: ISAAK IBARRA on 03/10/21 1006 Patient Home Medication List Home Medication List Reviewed: Yes Review of Systems Review of Systems Constitutional: No chills, No fever; malaise EENTM: No Symptoms Reported Respiratory: No Symptoms Reported Cardiovascular: No Symptoms Reported Gastrointestinal: See HPI, Constipated (No bowel movement since before surgery on Friday.); Denies Nausea, Denies Vomiting Genitourinary: See HPI Musculoskeletal: no symptoms reported Skin: other (Continued swelling to vaginal and perineal area since surgery) Psychiatric/Neurological: Anxiety Endocrine: No Symptoms Reported Past Vxgcoyo-Ycrpdj-Rtnbro Hx Patient Social History Tobacco Use?: No Substance use?: No Alcohol Use?: No Pt feels they are or have been: No Seasonal Allergies Seasonal Allergies: Yes Past Medical History Surgeries: Yes (ex of bunion, colonoscopy, wisdom teeth) Hysterectomy, Tubal Ligation Respiratory: Yes Chronic Bronchitis Currently Using CPAP: No Currently Using BIPAP: No Cardiac: No Neurological: No MANAGER ESTATE History: Hysterectomy, Tubal Ligation Genitourinary: Yes Bladder Infection, UTI-Chronic Gastrointestinal: No Musculoskeletal: No (RLS) Fibromyalgia Endocrine: No HEENT: No Cancer: No Psychosocial: Yes (FATIGUE SYNDROME) Anxiety, Depression Integumentary: No Blood Disorders: No Physical Exam Vital Signs Vital Signs - First Documented 03/12/21 17:08 Temp 36.4 Pulse 88 Resp 18 B/P (MAP) 145/74 (97) Pulse Ox 100 O2 Delivery Room Air Capillary Refill : Height/Weight/BMI Height: 5'4.00" Weight: 215lbs. oz. 97.922487mv; 36.00 BMI Method:Stated General Appearance: severe distress (Patient crying and distraught. She states that she feels like she needs to be admitted and taken care of because she can not handle this at home.) HEENT: PERRL/EOMI Neck: non-tender, full range of motion Respiratory: chest non-tender, lungs clear, normal breath sounds Cardiovascular: normal peripheral pulses, regular rate, rhythm Gastrointestinal: non tender, soft, no pulsatile mass, abnormal bowel sounds (hyperactive) Rectal: other (external exam appears normal without obvious tear or bleeding) Genital/Rectal: other (edema to vaginal area but no active bleeding or tear seen on visual exam) Extremities: normal range of motion, non-tender, normal inspection, normal capillary refill Neurologic/Psychiatric: internal control specialist II-XII nml as tested, alert, oriented x 3, other (anxious and distraught) Skin: normal color, warm/dry Progress/Results/Core Measures Results/Orders My Orders Orders - KRUNAL MILLER MD Ed Iv/Invasive Line Start (03/12/21 17:19) Ketorolac Injection (Toradol Injection) (03/12/21 17:19) Hydromorphone Injection (Dilaudid Inject (03/12/21 17:19) Vital Signs/I&O 03/12/21 03/12/21 17:08 18:11 Temp 36.4 36.1 Pulse 88 72 Resp 18 16 B/P (MAP) 145/74 (97) 117/72 Pulse Ox 100 99 O2 Delivery Room Air Room Air Progress Progress Note #1: Progress Note order a dose of dilaudid 1 mg IV x 1 to help with pain and to help calm her down as she is very anxious and upset about the pain in rectal and vaginal area. Will check with Dr. Deutsch again about admit or if he has other options for treatment. He states that if she is not able to tolerate this at home and she was in the ED at [place] he would have them admit her [facility] and he would manage her pain and continue Miralax hourly to help her have a bowel movement. Since I am not able to discharge her due to her continued severe pain and will not be able to make her have a BM with miralax here in ED will work on admit to [facility] for observation stay to continue Miralax and treatment for constipation. Progress Note #2: Progress Note pt reports pain more tolerable after dilaudid and more calm once she was advised that Dr. Deutsch was going to admit her Departure Communication (Admissions) Time/Spoke to Admitting Phy: 17:37 d/w Dr. Deutsch and with pt having 2 EMS trips to ED within 7 hours of each other and not tolerating taking the Miralax q 1 hour at home as ordered by Dr. Deutsch on first visit will place in observation at [facility] for cont inued Miralax and pain medicine and IVF. Impression Primary Impression: Constipation due to opioid therapy Additional Impression: Postoperative pain Disposition: 30 STILL A PATIENT Condition: Stable Admissions Decision to Admit Reason: Admit from ER (General) Decision to Admit/Date: Mar 12, 2021 Time/Decision to Admit Time: 17:37 Departure-Patient Inst. Referrals: MATILDE VALLEJO APRN (PCP) Primary Care Physician [facility] (Family) Primary Care Physician Images Torso/Trunk 1 - Other-See Progress Note Progress hyperactive bowel sounds with increased gas moving around in her abdomen. No tenderness to palpation. Soft on palpation KRUNAL MILLER MD Mar 12, 2021 17:09
[2021-03-12] MEDS ORDERED: KETOROLAC 30 MG/ML VIAL IVP STA (17:19)
[2021-03-12] MEDS ORDERED: HYDROmorphone 2 MG/ML VIAL (DILAUDID) IV STA (17:19)
[2021-03-12 20:25] VITALS: BP 146/69
[2021-03-12] MEDS ORDERED: NS IV 1000 ML 1,000 ML IV SCH (21:00)
[2021-03-12] MEDS ORDERED: polyethylene glycoL POWDER 17 GM (MIRALAX) PACK ONE ×2 (21:01→22:02)
[2021-03-12] MEDS ORDERED: NS IV 1000 ML 1,000 ML ONE (21:02)
[2021-03-12] MEDS: polyethylene glycoL POWDER 17 GM (MIRALAX) PACK PO SCH ×4 (21:16→23:49)
[2021-03-12] MEDS: fentaNYL INJ 100 MCG/2 ML AMP IVP PRN (23:23)
[2021-03-12] MEDS ORDERED: BENZOCAINE/MENTHOL (DERMOPLAST) 56 ML CAN TP PRN (23:45)
[2021-03-12] MEDS ORDERED: BENZOCAINE/MENTHOL (DERMOPLAST) 56 ML CAN TP ONE (23:47)
[2021-03-13] VITALS (13 sets, daily range): BP systolic 110–159; BP diastolic 63–78
[2021-03-13] MEDS: polyethylene glycoL POWDER 17 GM (MIRALAX) PACK PO SCH ×2 (00:54→01:21)
[2021-03-13] MEDS ORDERED: fentaNYL INJ 100 MCG/2 ML AMP ONE ×3 (02:04→12:34)
[2021-03-13] MEDS ORDERED: fentaNYL INJ 100 MCG/2 ML AMP IVP ONE ×2 (02:15→13:15)
[2021-03-13] MEDS ORDERED: KETOROLAC 30 MG/ML VIAL IVP ONE ×2 (02:15→08:00)
[2021-03-13] MEDS ORDERED: D5 LR IV SOLUTION 1,000 ML IV SCH (02:15)
[2021-03-13] MEDS ORDERED: D5 LR IV SOLUTION 1,000 ML IV ONE (02:26)
[2021-03-13] MEDS ORDERED: KETOROLAC 30 MG/ML VIAL ONE (02:26)
[2021-03-13] MEDS ORDERED: oxyCODONE/APAP 10/325MG (PERCOCET 10) TABLET PO PRN ×2 (03:30→12:45)
[2021-03-13] MEDS ORDERED: METOCLOPRAMIDE INJ 10 MG/2 ML (REGLAN) ONE (05:56)
[2021-03-13] MEDS ORDERED: METOCLOPRAMIDE INJ 10 MG/2 ML (REGLAN) IVP SCH (06:00)
[2021-03-13] MEDS ORDERED: fentaNYL INJ 100 MCG/2 ML AMP IVP PRN ×3 (07:15→12:45)
[2021-03-13] MEDS: fentaNYL INJ 100 MCG/2 ML AMP IVP PRN (08:14)
--- NOTE | 2021-03-13 08:33 | History & Physical ---
History and Physical Date Seen by Provider: Mar 13, 2021 Time Seen by Provider: 08:27 This patient is a 51-year-old female who was sent from the emergency department at [place] due to pelvic pain urinary retention and constipation. She had undergone anterior posterior vaginal repairs with sacrospinous ligament suspension as well as pubovaginal sling and cystoscopy on March 09, 2021. Apparently she had presented to the emergency department the following day due to urinary retention. She was treated in the emergency department and released and then returned again the following day for the same problem but was also at that point complaining of constipation. She was again treated and released and then presented to the emergency department again with complaint of intolerable pain constipation impaction urinary retention. Patient was transferred to [facility] to my care last evening. Since admission patient has been given MiraLAX and Reglan. She has had bowel movements and now is having loose stool. Her constipation has resolved. She did have a Ovalle catheter placed by the emergency department apparently at the direction of Dr. Núñez and that has been remaining to dependent drainage and we will have Dr. Núñez see her in follow-up. Patient continues to complain of pain in her rectum. Pain is relatively poorly controlled with Toradol Dilaudid Percocet and fentanyl. We discussed return to the operating room for exam under anesthesia and removal of sacrospinous ligament suspension suture which may be impinging on a nerve and contributing to her pain. I have already talked to the operating room and she is on the schedule now for known for that procedure. Allergies are multiple and are listed on her H&P Medications are per the [facility] Medical social and surgical history is all per her recent H&P from her surgery on Tuesday March 09, 2021 HEENT exam is normal Neck is supple no lymphadenopathy no thyromegaly Abdomen is soft nontender nondistended Extremities show no clubbing cyanosis. There is no Homans' sign. Pelvic exam is deferred to the operating room Assessment and plan postoperative urinary retention patient now has a Ovlale catheter to dependent drainage and we will have her follow-up with Dr. Fran colvin Postoperative constipation resolved with treatment with bowel kinetics and MiraLAX Postoperative pain possibly to nerve entrapment by the 6 pounds ligament and suspension suture. We will proceed to the operating room at noon for exam under anesthesia and removal of that particular suture Follow-up will be predicated on her results after her trip to the operating room Urinary retention/constipation/pain Allergies and Home Medications Allergies Coded Allergies: Milk Containing Products (Verified Allergy, Unknown, 03/05/21) Penicillins (Verified Allergy, Unknown, hives, 05/16/19) Sulfa (Sulfonamide Antibiotics) (Verified Allergy, Unknown, hives, 05/16/19) cephalexin (Verified Allergy, Unknown, hives, 05/16/19) clindamycin (Verified Allergy, Unknown, hives, 05/16/19) codeine (Verified Allergy, Unknown, jittery, shaking, 05/16/19) diphenhydramine (Verified Allergy, Unknown, shaking, 05/16/19) levofloxacin (Verified Allergy, Unknown, hives, 05/16/19) minocycline (Verified Allergy, Unknown, hives, 05/16/19) montelukast (Verified Allergy, Unknown, hives, 05/16/19) tramadol (Verified Allergy, Unknown, hives, 05/16/19) yellow dye (Verified Allergy, Unknown, itching, 05/16/19) Home Medications Albuterol Sulfate 1 Puff Puff, 1 PUFF IH Q4H, (Reported) 1 PUFF = 90 MCG Alprazolam 0.25 Mg Tablet, 0.25 MG PO DAILY, (Reported) Docusate Sodium 100 Mg Capsule, 100 MG PO BID Prescribed by: ISAAK IBARRA on 03/09/21 0806 Epinephrine 0.3 Mg/0.3 Ml Auto.injct, 0.3 MG IJ UD, (Reported) Estradiol 2 Mg Tablet, 1 MG PO DAILY, (Reported) Fluoxetine HCl 40 Mg Capsule, 40 MG PO DAILY, (Reported) Ibuprofen 800 Mg Tablet, 800 MG PO Q6HR Prescribed by: ISAAK IBARRA on 03/09/21 0806 Levocetirizine Dihydrochloride 5 Mg Tablet, 5 MG PO DAILY PRN, (Reported) Ondansetron 4 Mg Tab.rapdis, 4 MG PO Q6H PRN for NAUSEA/VOMITING Prescribed by: BILL LINN on 05/16/19 1243 Oxycodone HCl/Acetaminophen 1 Each Tablet, 1 TAB PO Q4H PRN for PAIN-MODERATE Prescribed by: ISAAK IBARRA on 03/10/21 1006 Patient Home Medication List Home Medication List Reviewed: Yes ISAAK LANDIS MD Mar 13, 2021 08:32
[2021-03-13] MEDS ORDERED: LACTATED RINGERS 1,000 ML IV PRN ×2 (09:00)
[2021-03-13 10:02] LABS: BASOPHILS % (AUTO) 0 % (0-10); EOSINOPHILS # (AUTO) 0.1 10^3/uL (0.0-0.3); EOSINOPHILS % (AUTO) 1 % (0-10); HEMATOCRIT 30 % (35-52); HEMOGLOBIN 10.3 g/dL (11.5-16.0); LYMPHOCYTES # (AUTO) 1.8 10^3/uL (1.0-4.0); LYMPHOCYTES % (AUTO) 18 % (12-44); MEAN CORPUSCULAR HEMOGLOBIN 32 pg (25-34); MEAN CORPUSCULAR HGB CONC 35 g/dL (32-36); MEAN CORPUSCULAR VOLUME 92 fL (80-99); MEAN PLATELET VOLUME 10.4 fL (9.0-12.2); MONOCYTES # (AUTO) 0.4 10^3/uL (0.0-1.0); MONOCYTES % (AUTO) 4 % (0-12); NEUTROPHILS # (AUTO) 7.4 10^3/uL (1.8-7.8); NEUTROPHILS % (AUTO) 76 % (42-75); PLATELET COUNT 269 10^3/uL (130-400); WHITE BLOOD COUNT 9.7 10^3/uL (4.3-11.0)
[2021-03-13] MEDS ORDERED: ONDANSETRON 4 MG/2 ML (SDV) Z0FRAN ONE (12:33)
[2021-03-13] MEDS ORDERED: fentaNYL INJ 250 MCG/5 ML AMP ONE ×2 (12:33→12:34)
[2021-03-13] MEDS ORDERED: LIDOCAINE PF 2% 5 ML (XYLOCAINE) VIAL ONE (12:33)
[2021-03-13] MEDS ORDERED: MIDAZOLAM 2 MG/2 ML (VERSED) VIAL ONE (12:33)
[2021-03-13] MEDS ORDERED: proPOfol 200 MG/20 ML (DIPRIVAN) VIAL IV ONE (12:33)
[2021-03-13] MEDS ORDERED: BENZOCAINE/MENTHOL (DERMOPLAST) 56 ML CAN TP PRN (12:45)
[2021-03-13] MEDS ORDERED: ONDANSETRON 4 MG/2 ML (SDV) Z0FRAN IVP PRN ×2 (12:45→13:15)
--- NOTE | 2021-03-13 13:04 | Anesthesia-General Post-Op ---
General Patient Condition Mental Status/LOC: Same as Preop Cardiovascular: Satisfactory Nausea/Vomiting: Absent Respiratory: Satisfactory Pain: Controlled Complications: Absent Post Op Complications Complications None Follow Up Care/Instructions Patient Instructions None needed. Anesthesia/Patient Condition Patient Condition Patient is doing well, no complaints, stable vital signs, no apparent adverse anesthesia problems. No complications reported per nursing. JOSÉ PATEL CRNA Mar 13, 2021 13:03
[2021-03-13] MEDS ORDERED: morphine INJ 10 MG/ML 1ML (SYR OR VIAL) IVP ONE (13:15)
[2021-03-13] MEDS ORDERED: SEVOFLURANE (ULTANE) 15 ML INHAL SOLN ONE (13:16)
[2021-03-13] MEDS: KETOROLAC 30 MG/ML VIAL IVP SCH ×2 (14:24→20:53)
[2021-03-13] MEDS: D5 LR IV SOLUTION 1,000 ML IV SCH ×2 (14:35→22:35)
--- NOTE | 2021-03-13 16:59 | OPERATIVE REPORT ---
DATE OF SERVICE: 03/12/2021 PREOPERATIVE DIAGNOSIS: Pelvic pain. POSTOPERATIVE DIAGNOSIS: Pelvic pain. OPERATIVE PROCEDURE: Examination under anesthesia and removal of sacrospinous ligament suspension suture. OPERATIVE DESCRIPTION: With the patient in the supine position under satisfactory general anesthesia, she was repositioned in dorsal lithotomy position in the Abraham stirrups. Speculum was placed in the vagina. The upper vagina exposed. Examination well patient with anesthetized was consistent with normal healing from her anterior posterior repairs. Good support was evident anterior and posterior. There were no induration there was no erythema there was no abnormal discharge or drainage. There was no signs symptoms or indications of infection. There were no obvious hematomas there was no mass-effect. Exam under anesthesia was normal for postoperative state for this patient There was a single sacrospinous ligament suspension suture at the right apex of the vagina. This was grasped with a long clamp and elevated and then the suture was cut and then a knot and removed intact. Balance of the patient's exam was normal. The patient had had undergone anterior and posterior vaginal repairs 4 days prior. Those repairs were normal in appearance. There were no signs, symptoms or indications of infection. No mass effect, no distortion. No erythema and no induration. With the suture removed and the examination under anesthesia reassuring the patient was uneventfully awakened from her general anesthesia and transferred to recovery room in stable condition. Job ID: [id number] DocumentID: [id number] Dictated Date: 03/13/2021 13:58:44 Base Engineer Date: 03/13/2021 16:58:01 Dictated By: ISAAK LANDIS MD MTDD
[2021-03-14 01:22] VITALS: BP 156/66
[2021-03-14] MEDS: KETOROLAC 30 MG/ML VIAL IVP SCH (03:32)
[2021-03-14 06:39] VITALS: BP 167/73
[2021-03-14 08:00] VITALS: BP 143/64
--- NOTE | 2021-03-14 08:02 | Progress Note ---
Standard Progress Note Progress Notes/Assess & Plan Date Seen by a Provider: Mar 14, 2021 Time Seen by a Provider: 08:00 Progress/Assessment & Plan This patient is without complaint. She is ambulating, tolerating oral intake well. Her pain is resolved after removal of the sacrospinous ligament suspension stitch. Vital Signs Date Time Temp Pulse Resp B/P (MAP) Pulse Ox O2 Delivery O2 Flow Rate FiO2 03/14/21 06:39 36.7 65 18 167/73 (104) Room Air 03/14/21 01:22 36.9 70 18 156/66 (96) 95 Room Air 03/13/21 20:56 36.9 69 20 159/74 (102) 94 Room Air 03/13/21 17:30 37.1 80 18 149/71 (97) 98 Room Air 03/13/21 14:45 37.0 75 16 146/67 (93) 95 Room Air 03/13/21 14:00 37.1 80 16 146/75 (98) 95 Room Air 03/13/21 13:50 Room Air 03/13/21 13:50 36.4 20 142/78 (99) 93 Room Air 03/13/21 13:45 Room Air 03/13/21 13:40 20 140/76 (97) 93 Room Air 03/13/21 13:30 20 140/76 (97) 93 Room Air 03/13/21 13:30 Room Air 03/13/21 13:20 20 139/76 (97) 96 OxyMask 3 03/13/21 13:15 OxyMask 3 03/13/21 13:10 20 136/77 (96) 95 OxyMask 3 03/13/21 13:00 20 115/68 (84) 100 OxyMask 6 03/13/21 13:00 OxyMask 6 03/13/21 12:56 OxyMask 6 03/13/21 12:56 36.4 20 110/63 (79) 96 OxyMask 6 I & O 03/14/21 07:00 Intake Total 3300 ml Output Total 1975 ml Balance 1325 ml Vital signs are stable. Patient is afebrile. The abdomen is benign Extremities show no clubbing or cyanosis. There is no Homans' sign. Pelvic exam is deferred Assessment and plan Hospital day #2+ observation for pelvic pain. Appears this pain was referable to nerve entrapment from sacrospinous ligament suspension suture. The suture was removed her pain is resolved. Patient also has a problem with urinary retention and Dr. Núñez is managing that. Patient will likely be discharged home with follow-up in clinic today Final Diagnosis Urinary retention/constipation/nerve entrapment syndrome ISAAK LANDIS MD Mar 14, 2021 08:02
--- NOTE | 2021-03-14 08:02 | Progress Note - Urology ---
Progress Note-Urology Progress Notes/Assess & Plan Progress/Assessment & Plan PLAN TOV AND MANAGE ACCORDINGLY Final Diagnosis INCONTINENCE POST PVS WITH SOME RETENTION MARLY GALLO MD Mar 14, 2021 08:02
--- NOTE | 2021-03-14 08:03 | Discharge Inst-Surgical ---
Discharge Inst-Surgical Depart Medication/Instructions New, Converted or Re-Newed RX: Other Consults/Follow Up Patient Instructions: As directed Orders & Referrals Follow Up Appt: Call to make follow up appt. for patient in [address] Deutsch Follow-up with Dr. Núñez per his instructions Activity: Rest for 24 hours, than as tolerated. Wound Care: May remove Band-Aid tomorrow. Replace as desired. Keep incisions clean and dry. Wash daily with soap and water. Please call in RX to patient pharmacy. Diet: As tolerated-Clear Liquids only if nauseated. Tomorrow, may shower or tub bathe as desired. No driving for 24 hours, no alcoholic beverages for 24 hours, and nothing per vagina (no tampons, douching, or intercourse) for 4 weeks. Patient to return to the clinic as soon as possible for: Temperature greater than 101F, Severe Pain, Foul discharge from incision or vagina, Excessive Bleeding (more than a period). Activity Activity as Tolerated: No Diet Discharge Diet: No Restrictions ISAAK DEUTSCH MD Mar 14, 2021 08:03
[2021-03-14] MEDS ORDERED: DOCUSATE SODIUM 100 MG (COLACE) CAP PO SCH (09:00)
[2021-03-14] MEDS ORDERED: IBUPROFEN 800 MG (MOTRIN) TAB PO SCH ×2 (10:00→18:00)
[2021-03-14 12:20] VITALS: BP 143/64
== END 2021-03-14 12:20 | disposition home or self-care (01) ==
LOC: EDUNIT# 17:06 → ER FS 17:07 → SDC 20:25 → WS 20:25 → UNDOADMOB 20:25 → UNDODISOB 03-14 12:20 → SDC 03-14 12:20
PROVIDERS: ATTEND Obstetrics & Gynecology
DX: G89.18 Other acute postprocedural pain (principal); R10.2 Pelvic and perineal pain; K59.03 Drug induced constipation; J42 Unspecified chronic bronchitis; N39.0 Urinary tract infection, site not specified; G62.9 Polyneuropathy, unspecified; Z79.891 Long term (current) use of opiate analgesic; Z79.899 Other long term (current) drug therapy; Z90.710 Acquired absence of both cervix and uterus; Z98.51 Tubal ligation status; F32.9 Major depressive disorder, single episode, unspecified; F41.9 Anxiety disorder, unspecified
CPT/HCPCS: 15850; 85025; 94664; 99284; G0378; 36415; 96374; 96375

== ENCOUNTER 2021-03-15 04:49 | Emergency (ER) | payer BC ==
[~2021-03-15] VITALS: Ht 162.6 cm; Wt 98.0 kg
[2021-03-15 04:58] VITALS: BP 178/102
--- NOTE | 2021-03-15 05:14 | ED General ---
General Chief Complaint: Cardiac/General Problems Stated Complaint: FAST HEARTRATE Nursing Triage Note: PT AMBULATE TO ROOM FS06 WITH C/O HEART PALPATATIONS, URINARY RETENTION, AND SHE THINKS SHE IS ALLERGIC TO HER IBUPROFEN. Source of Information: Patient, Old Records History of Present Illness Date Seen by Provider: Mar 15, 2021 Time Seen by Provider: 04:52 Initial Comments 51 yo female presenting with complaint of having woke up due to heart palpitations and heart racing. She felt like her heart was racing and she was having palpitations. Her vaginal and anal area has been still swollen. She felt like her bladder was starting to fill up and not drained similar to what was happening at the beginning of the week when she had to have a catheter placed. She has been using ibuprofen for pain and was concerned that maybe she was having an allergic reaction to that. She has multiple allergies to multiple medications and products. She also has been using a lot of the perineal spray and it was starting to cause burning. She had applied vinegar with a cotton ball and castor oil with a cottonball which helped to calm some of her vaginal and anal irritation. She applied some frankincense oil to her wrist which see med to help some with her breathing and heart fast heart rate. This all started around 1 AM and she came into the ER just before 5 AM. She denies any fever, chills, abdominal pain. Her bowels have gone from being constipated earlier this week to now being loose. She states she has a history of IBS and wasn't sure if this was triggered at this point or if it was from irritation and allergic reaction to the ibuprofen. Timing/Duration: 1-3 Hours Severity: Moderate Modifying Factors: worse with Medication Associated Systoms: No Chest Pain, No Cough, No Diaphoresis, No Fever/Chills, No Headaches, No Loss of Appetite; Malaise; No Nausea/Vomiting, No Seizure, No Shortness of Air, No Syncope, No Weakness Allergies and Home Medications Allergies Coded Allergies: Milk Containing Products (Verified Allergy, Unknown, 03/05/21) Penicillins (Verified Allergy, Unknown, hives, 05/16/19) Sulfa (Sulfonamide Antibiotics) (Verified Allergy, Unknown, hives, 05/16/19) cephalexin (Verified Allergy, Unknown, hives, 05/16/19) clindamycin (Verified Allergy, Unknown, hives, 05/16/19) codeine (Verified Allergy, Unknown, jittery, shaking, 05/16/19) diphenhydramine (Verified Allergy, Unknown, shaking, 05/16/19) levofloxacin (Verified Allergy, Unknown, hives, 05/16/19) minocycline (Verified Allergy, Unknown, hives, 05/16/19) montelukast (Verified Allergy, Unknown, hives, 05/16/19) tramadol (Verified Allergy, Unknown, hives, 05/16/19) yellow dye (Verified Allergy, Unknown, itching, 05/16/19) Home Medications Albuterol Sulfate 1 Puff Puff, 1 PUFF IH Q4H, (Reported) 1 PUFF = 90 MCG Alprazolam 0.25 Mg Tablet, 0.25 MG PO DAILY, (Reported) Docusate Sodium 100 Mg Capsule, 100 MG PO BID Prescribed by: ISAAK IBARRA on 03/09/21 0806 Epinephrine 0.3 Mg/0.3 Ml Auto.injct, 0.3 MG IJ UD, (Reported) Estradiol 2 Mg Tablet, 1 MG PO DAILY, (Reported) Fluoxetine HCl 40 Mg Capsule, 40 MG PO DAILY, (Reported) Ibuprofen 800 Mg Tablet, 800 MG PO Q6HR Prescribed by: ISAAK IBARRA on 03/09/21 0806 Levocetirizine Dihydrochloride 5 Mg Tablet, 5 MG PO DAILY PRN, (Reported) Ondansetron 4 Mg Tab.rapdis, 4 MG PO Q6H PRN for NAUSEA/VOMITING Prescribed by: BILL LINN on 05/16/19 1243 Oxycodone HCl/Acetaminophen 1 Each Tablet, 1 TAB PO Q4H PRN for PAIN-MODERATE Prescribed by: ISAAK IBARRA on 03/10/21 1006 Patient Home Medication List Home Medication List Reviewed: Yes Review of Systems Review of Systems Constitutional: No chills, No fever EENTM: no symptoms reported Respiratory: no symptoms reported Cardiovascular: no symptoms reported Gastrointestinal: see HPI Genitourinary: see HPI Musculoskeletal: no symptoms reported Skin: see HPI Psychiatric/Neurological: Anxiety Past Bbkalhx-Cylzor-Lgnkbc Hx Patient Social History Tobacco Use?: No Substance use?: No Alcohol Use?: No Pt feels they are or have been: No Seasonal Allergies Seasonal Allergies: Yes Past Medical History Surgeries: Yes (ex of bunion, colonoscopy, wisdom teeth) Hysterectomy, Tubal Ligation Respiratory: Yes Chronic Bronchitis Currently Using CPAP: No Currently Using BIPAP: No Cardiac: No 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 oz. 97.866448fz; 37.00 BMI Method:Stated General Appearance: Anxious, Obese HEENT: PERRL/EOMI Neck: Full Range of Motion, Supple Respiratory: Chest Non Tender, Lungs Clear, Normal Breath Sounds Cardiovascular: Regular Rate, Rhythm, Normal Peripheral Pulses Gastrointestinal: Normal Bowel Sounds, No Pulsatile Mass, Non Tender, Soft Rectal: Deferred Extremity: Normal Capillary Refill, Normal Inspection, No Pedal Edema Neurologic/Psychiatric: Alert, Oriented x3, No Motor/Sensory Deficits Skin: Warm/Dry Progress/Results/Core Measures Suspected Sepsis SIRS Temperature: Pulse: 83 Respiratory Rate: 20 Blood Pressure 178 /102 Mean: 127 Results/Orders Lab Results Laboratory Tests Test 03/15/21 05:18 Range/Units Urine Color YELLOW Urine Clarity CLEAR Urine pH 7.0 5-9 Urine Specific [place] 1.010 L 1.016-1.022 Urine Protein NEGATIVE NEGATIVE Urine Glucose (UA) NEGATIVE NEGATIVE Urine Ketones NEGATIVE NEGATIVE Urine Nitrite NEGATIVE NEGATIVE Urine Bilirubin NEGATIVE NEGATIVE Urine Urobilinogen 0.2 < = 1.0 MG/DL Urine Leukocyte Esterase 1+ H NEGATIVE Urine RBC (Auto) 2+ H NEGATIVE Urine RBC 5-10 H /HPF Urine WBC 5-10 H /HPF Urine Squamous Epithelial Cells 2-5 /HPF Urine Crystals NONE /LPF Urine Bacteria RARE /HPF Urine Casts NONE /LPF Urine Mucus NEGATIVE /LPF Urine Culture Indicated YES My Orders Orders - KRUNAL MILLER MD Bladder Scan (03/15/21 05:08) Ekg Tracing (03/15/21 05:08) Monitor-Rhythm Ecg Trace Only (03/15/21 05:08) Ua Culture If Indicated (03/15/21 05:35) Urine Culture (03/15/21 05:18) Vital Signs/I&O 03/15/21 04:58 Temp 36.5 Pulse 83 Resp 20 B/P (MAP) 178/102 (127) O2 Delivery Room Air Capillary Refill : Less Than 3 Seconds Blood Pressure Mean: 127 Progress Note #1: Progress Note check bladder scan, ECG and UA. Progress Note #2: Progress Note ECG is sinus rhythm. Bladder scan shows 110 ml and she voided 110 ml. Reassured pt and will wait to see what UA shows. BP is elevated but is coming down as she rest in the bed. Progress Note #3: Progress Note Blood pressure continues to decrease as she is resting in bed. She came down to 160/82 prior to discharge. She had urine showing signs of infection and her urine culture from March 12 showed E. coli that was pansensitive to antibiotics. When discussing these findings with the patient she again was concerned about her multiple allergies to medications especially antibiotics. She states that she will use Oil of Oregano to help treat the urine infection and if she gets worse she will check about taking an antibiotic. She plans to take 1/2 of a Xanax when she gets home to help her relax and will use the Vinegar and [place] oil to help with swelling and irriation to her vaginal, perineal and rectal areas. Encouraged to check back with Dr. Deutsch and Dr. Sheets for follow up on her surgery ECG Initial ECG Impression Date: Mar 15, 2021 Initial ECG Impression Time: 05:16 Initial ECG Rate: 73 Initial ECG Rhythm: Normal Sinus Initial ECG Comparisson: No Previous ECG Available Comment Normal sinus rhythm with a heart rate of [address] elevation. [place] interval 142 ms. QT interval 394 ms with a QTc interval 435 ms. No prior tracings available for comparison Departure Impression Primary Impression: Palpitations Additional Impressions: Vaginal irritation Cystitis without hematuria Disposition: 01 HOME, SELF-CARE Condition: Stable Departure-Patient Inst. Decision time for Depature: 06:18 Referrals: MATILDE VALLEJO APRN (PCP) Primary Care Physician [facility] (Family) Primary Care Physician ISAAK DEUTSCH MD,MARLY Camp MD Patient Instructions: Palpitations, Urinary Tract Infection, Adult ED Add. Discharge Instructions: Stop using the spray on your perineum and try using your homeopathic treatments to see if that works better for you. Check back with Dr. Deutsch and Dr. Sheets for continued concerns about your surgery and how you are healing. All discharge instructions reviewed with patient and/or family. Voiced understanding. KRUNAL MILLER MD Mar 15, 2021 05:14
[2021-03-15 05:59] LABS: CLARITY,URINE CLEAR; COLOR,URINE YELLOW
[2021-03-15 06:00] LABS: BILIRUBIN,URINE NEGATIVE (NEGATIVE); GLUCOSE, URINE (UA) NEGATIVE (NEGATIVE); KETONES,URINE NEGATIVE (NEGATIVE); LEUKOCYTE ESTERASE ,URINE 1+ (NEGATIVE); NITRITE,URINE NEGATIVE (NEGATIVE); PROTEIN,URINE NEGATIVE (NEGATIVE)
[2021-03-15 06:01] LABS: BACTERIA,URINE RARE /HPF
== END 2021-03-15 06:20 | disposition home or self-care (01) ==
LOC: EDUNIT# 04:49 → ER FS 04:51
DX: R00.2 Palpitations (principal); N89.8 Other specified noninflammatory disorders of vagina; N30.90 Cystitis, unspecified without hematuria; E66.9 Obesity, unspecified; F41.9 Anxiety disorder, unspecified; F32.9 Major depressive disorder, single episode, unspecified; Z68.37 Body mass index [BMI] 37.0-37.9, adult; Z79.899 Other long term (current) drug therapy
CPT/HCPCS: 81000; 87088; 93005; 93041

== ENCOUNTER 2023-03-07 13:39 | Emergency (ER) | payer BC, OTHER ==
[~2023-03-07] VITALS: Ht 162.6 cm; Wt 90.7 kg
[~2023-03-07 13:39] MED LIST changes: +ALBU8.5H6 IH; -DCS100C PO; +DOCU-239 PO; -ESTR2TAB PO; +ESTR2TAB3 PO; -RT-ALBUINH IH
[2023-03-07 13:43] VITALS: BP 128/82
[2023-03-07] MEDS ORDERED: methylPREDNISolone 40 MG/ML (DEPO MEDROL) VIAL IM STA (13:51)
--- NOTE | 2023-03-07 14:30 | ED General ---
General Chief Complaint: Allergic Reaction Stated Complaint: ALLERGIC REACTION Nursing Triage Note: Patient reports she started taking a new medication yesterday and began having lip, tongue, gum, and throat swelling/tingling 30 minutes ago. Source of Information: Patient History of Present Illness Date Seen by Provider: Mar 07, 2023 Time Seen by Provider: 13:39 Initial Comments 53-year-old female presenting with complaints of allergic reaction. She states that she started taking a new medicine yesterday and after taking a dose this morning she noticed that she was having tingling sensation and numbness to her lips gums and tongue. She felt like her throat was swelling closing up on her. She felt like she was having difficulty swallowing since her mouth was so dry. She has multiple allergies to multiple things and reports that the new medicine apparently does have a corn derived element and she states that she is highly allergic to corn. She has no wheezing or difficulty talking while obtaining history and interviewing and examining the patient. She has 2 epi-pens but has not used them before and was worried about taking them since she is allergic to so many things. She appears very anxious and is breathing fast as she is talking about how she feels. Timing/Duration: 1/2 Hour Severity: Severe Modifying Factors: worse with Medication Associated Systoms: No Chest Pain, No Cough, No Diaphoresis, No Fever/Chills, No Headaches, No Loss of Appetite, No Malaise, No Nausea/Vomiting, No Rash, No Seizure, No Shortness of Air, No Syncope, No Weakness Allergies and Home Medications Allergies Coded Allergies: Milk Containing Products (Verified Allergy, Unknown, 03/05/21) Penicillins (Verified Allergy, Unknown, hives, 05/16/19) Sulfa (Sulfonamide Antibiotics) (Verified Allergy, Unknown, hives, 05/16/19) cephalexin (Verified Allergy, Unknown, hives, 05/16/19) clindamycin (Verified Allergy, Unknown, hives, 05/16/19) codeine (Verified Allergy, Unknown, jittery, shaking, 05/16/19) diphenhydramine (Verified Allergy, Unknown, shaking, 05/16/19) levofloxacin (Verified Allergy, Unknown, hives, 05/16/19) minocycline (Verified Allergy, Unknown, hives, 05/16/19) montelukast (Verified Allergy, Unknown, hives, 05/16/19) tramadol (Verified Allergy, Unknown, hives, 05/16/19) yellow dye (Verified Allergy, Unknown, itching, 05/16/19) Patient Home Medication List Home Medication List Reviewed: Yes Albuterol Sulfate (Ventolin Hfa) 1 Puff Puff, 1 PUFF IH Q4H, (Reported) Entered as Reported by: ZOEY BAUER on 03/05/21 1223 Alprazolam (Xanax) 0.25 Mg Tablet, 0.25 MG PO DAILY, (Reported) Entered as Reported by: ZOEY BAUER on 03/05/21 1224 Docusate Sodium (Dok) 100 Mg Capsule, 100 MG PO BID Prescribed by: ISAAK IBARRA on 03/09/21 0806 Epinephrine (Epinephrine) 0.3 Mg/0.3 Ml Auto.injct, 0.3 MG IJ UD, (Reported) Entered as Reported by: ZOEY BAUER on 03/05/21 1223 Estradiol (Estradiol Tablet) 2 Mg Tablet, 1 MG PO DAILY, (Reported) Entered as Reported by: TURNER MARTIN on 05/16/19 1159 Fluoxetine HCl (Fluoxetine HCl) 40 Mg Capsule, 40 MG PO DAILY, (Reported) Entered as Reported by: TURNER MARTIN on 05/16/19 1159 Fluticasone Propionate (Fluticasone Propionate) 16 Gm [place].susp, 16 GM NS, (Reported) Entered as Reported by: ZOEY BAUER on 03/05/21 1223 Ibuprofen (Ibuprofen) 800 Mg Tablet, 800 MG PO Q6HR Prescribed by: ISAAK IBARRA on 03/09/21 0806 Levocetirizine Dihydrochloride (Levocetirizine Dihydrochloride) 5 Mg Tablet, 5 MG PO DAILY PRN, (Reported) Entered as Reported by: ZOEY BAUER on 03/05/21 1223 Ondansetron (Ondansetron Odt) 4 Mg Tab.rapdis, 4 MG PO Q6H PRN for NAUSEA/ VOMITING Prescribed by: BILL LINN on 05/16/19 1243 Oxycodone HCl/Acetaminophen (Oxycodone-Acetaminophen 10-325) 1 Each Tablet, 1 TAB PO Q4H PRN for PAIN-MODERATE Prescribed by: ISAAK IBARRA on 03/10/21 1006 Review of Systems Review of Systems Constitutional: No chills, No fever EENTM: see HPI Respiratory: see HPI Cardiovascular: no symptoms reported Gastrointestinal: no symptoms reported Genitourinary: no symptoms reported Musculoskeletal: no symptoms reported Skin: No rash Psychiatric/Neurological: Anxiety Past Pzweuwf-Zmgzlg-Eknibz Hx Patient Social History Tobacco Use?: No Substance use?: No Alcohol Use?: No Pt feels they are or have been: No Seasonal Allergies Seasonal Allergies: Yes Past Medical History Surgery/Hospitalization HX: fibromyalgia, RLS, depression, multiple drug and environmental allergies Surgeries: Yes (ex of bunion, colonoscopy, wisdom teeth) Hysterectomy, Tubal Ligation Respiratory: Yes Chronic Bronchitis Currently Using CPAP: No Currently Using BIPAP: No Cardiac: No 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 oz. 97.584561uc; 34.00 BMI Method:Stated General Appearance: WD/WN, Anxious HEENT: PERRL/EOMI, Normal ENT Inspection, Pharynx Normal, Moist Mucous Membranes; No Pharyngeal Erythema, No Tonsillar Enlargement, No Other (no stridor on exam or auscultation, no visible swelling on exam of oropharynx, patient is swallowing her saliva without difficulty) Neck: Full Range of Motion, Normal Inspection, Supple Respiratory: Chest Non Tender, Lungs Clear, Normal Breath Sounds, No Accessory Muscle Use, No Respiratory Distress; No Rhonci, No Stridor, No Wheezing Cardiovascular: Regular Rate, Rhythm, Normal Peripheral Pulses Extremity: Normal Capillary Refill, No Pedal Edema Neurologic/Psychiatric: Alert, Oriented x3, efficiency analyst II-XII Norm as Tested Skin: Normal Color, Warm/Dry; No Rash Progress/Results/Core Measures Suspected Sepsis SIRS Temperature: Pulse: 85 Respiratory Rate: 18 Blood Pressure 128 /82 Mean: 97 Results/Orders My Orders Orders - KRUNAL MILLER MD Dexamethasone Injection (Decadron Inje (03/07/23 13:51) Methylprednisolone Acetate Inj (Depo-Med (03/07/23 13:51) Vital Signs/I&O 03/07/23 13:43 Temp 36.3 Pulse 85 Resp 18 B/P (MAP) 128/82 (97) Pulse Ox 94 O2 Delivery Room Air Capillary Refill : Less Than 3 Seconds Blood Pressure Mean: 97 Progress Note #1: Progress Note Patient is having potential allergic reaction or side effect of medication. As she has multiple allergies including antihistamine such as diphenhydramine, but is able to take steroids Will administer dexamethasone 10 mg IM along with Depo- Medrol 40 mg IM to try and help with her symptoms. Progress Note #2: Time: 14:40 Progress Note On recheck of the patient she continues to be breathing without difficulty and swallowing her own secretions as well as tolerating ice chips by mouth. Her oxygen saturation remains 95 to 97% on room air. She is not having any stridor or wheezing. She reports that the tingling sensation is improving in her lips and gums but still feels a little bit in her throat and tongue. Advised that she could take additional Xyzal and famotidine to try and help with her sym ptoms. Otherwise avoid taking that new medicine. Hopefully the steroids would help with her fibromyalgia flare. Encouraged to check back with her PCP about further treatment medications that she might take for her fibromyalgia. Departure Impression Primary Impression: Allergic reaction Qualified Codes: T78.40XA - Allergy, unspecified, initial encounter Disposition: 01 HOME, SELF-CARE Condition: Improved Departure-Patient Inst. Decision time for Depature: 14:43 Referrals: VON LOZANO MD (PCP) Primary Care Physician Patient Instructions: Allergic Reaction ED, Epinephrine autoinjectors Add. Discharge Instructions: Stop taking the new medicine. The steroid shots from today will continue to stay in your system and help with symptoms over the next 4 to 5 days while the new drug comes out of your system. You may take Famotidine (Pepcid) to help with your symptoms. You may also take an additional Xyzal to help with your symptoms. Check back with [facility] for continued concerns. Continue taking your allergy medications at home to further help with your symptoms. All discharge instructions reviewed with patient and/or family. Voiced understanding. KRUNAL MILLER MD Mar 07, 2023 14:30
== END 2023-03-07 14:48 | disposition home or self-care (01) ==
LOC: EDUNIT# 13:39 → ER FS 13:39
DX: T78.40XA Allergy, unspecified, initial encounter (principal)
CPT/HCPCS: 99284